=== PATIENT | male | born 1970 | race Two or more races ===

== ENCOUNTER → 2024-10-09 | Outpatient (CLI) | payer OTHER, MEDICAID, SELFPAY ==
[2024-10-09 08:41] LABS: Basophils % (Auto) 1 % (0-2.5); Eosinophils # (Auto) 0.1 Thou/mm3 (0.0-0.5); Eosinophils % (Auto) 2 % (0-10); Hematocrit 45.1 % (41.0-53.0); Hemoglobin 14.6 g/dL (13.5-16.0); Immature Granulocytes % (Auto) 0 % (0-0); Immature Granulocytes Auto 0.01 Thou/mm3 (0.00-0.00); Lymphocytes # (Auto) 0.8 Thou/mm3 (1.0-4.8); Lymphocytes % (Auto) 15 % (10-50); Mean Corpuscular HGB Conc 32.4 g/dl (31.0-37.0); Mean Corpuscular Hemoglobin 26.3 pg (25.0-35.0); Mean Corpuscular Volume 81 fL (80-100); Monocytes # (Auto) 0.5 Thou/mm3 (0.0-0.8); Monocytes % (Auto) 9 % (0-12); Neutrophils % (Auto) 74 % (37-80); Nucleated Red Blood Cell % 0 /100 WBC (0); Platelet Count 453 Thou/mm3 (140-440); RDW Standard Deviation 45.1 fL (35.1-43.9); Red Blood Count 5.55 Miln/mm3 (4.50-5.90); White Blood Count 5.4 Thou/mm3 (3.8-10.6)
== END | disposition home or self-care (01) ==
LOC: COPL 07:34
PROVIDERS: PCP Family Medicine; Referring Provider Family Medicine; Visit Provider Family Medicine
DX: I48.11 Longstanding persistent atrial fibrillation (principal)
CPT/HCPCS: 36415; 85025

== ENCOUNTER 2024-11-14 09:12 | Outpatient (AMB) | payer OTHER, MEDICAID, SELFPAY ==
--- NOTE | 2024-11-14 09:25 | RHCORTHONT_ITS ---
Vital signs 11/14/24 09:26 Height 1.75 m Height Method Stated Weight 114.816 kg Weight Measurement Method Standing Scale BMI 37.5 BP 133/87 H Blood Pressure Source Automatic Cuff Blood Pressure Location Right Upper Arm Position Sitting Respiration 18 Pulse 65 Pulse Source Monitor Temp 98.1 F Temp Source Temporal Artery Scan Pulse Oximetry (%) 96 Oxygen Delivery Method Room Air Med/Allergies Allergies & Medications Allergies No Known Allergies Allergy (Verified 11/14/24 09:27) Medication Reconciliation allopurinol 300 mg tablet 300 mg PO QDAY 07/17/21 [History Confirmed 09/02/24] rivaroxaban 20 mg tablet (Xarelto) 20 mg PO HS 07/17/21 [History Confirmed 09/02/24] atorvastatin 80 mg tablet 80 mg PO QPM #30 tabs 11/17/22 [Rx Confirmed 09/02/24] tirzepatide 15 mg/0.5 mL subcutaneous pen injector (Mounjaro) 15 mg subcut QWEEK 05/20/24 [History Confirmed 09/02/24] famotidine 40 mg tablet 40 mg PO HS 08/10/24 [History Confirmed 09/02/24] linaclotide 145 mcg capsule (Linzess) 145 mcg PO QDAY 08/10/24 [History Confirmed 09/02/24] loratadine 10 mg disintegrating tablet 10 mg PO QDAY 08/10/24 [History Confirmed 09/02/24] aspirin 81 mg tablet 81 mg PO QDAY 09/02/24 [History Confirmed 09/02/24] dapagliflozin propanediol 10 mg tablet (Farxiga) 10 mg PO DAILY 09/02/24 [History Confirmed 09/02/24] levothyroxine 88 mcg tablet 88 mcg PO QDAY 09/02/24 [History Confirmed 09/02/24] mexiletine 150 mg capsule 150 mg PO BID 09/02/24 [History Confirmed 09/02/24] sotalol 160 mg tablet 160 mg PO BID 09/02/24 [History Confirmed 09/02/24] lisinopril 2.5 mg tablet 2.5 mg PO QDAY #30 tabs 09/03/24 [Rx] metoprolol succinate 50 mg tablet,extended release 24 hr 50 mg PO QDAY #30 tabs 09/03/24 [Rx] metoprolol tartrate 50 mg tablet 50 mg PO QDAY 11/14/24 [History Confirmed 11/14/24] mexiletine 150 mg capsule 300 mg PO Q8H 11/14/24 [History Confirmed 11/14/24] Exam Exam Patient is in no acute distress and is cooperative with the examination today. Breathing is nonlabored. In no respiratory distress. Bilateral extremities were evaluated and demonstrates sensation intact to light touch. Palpable pedal pulses are present. No significant edema is present. Bilateral hips were examined. The patient has no pain with log roll of the hips. Internal rotation to 30 degrees and external rotation to 30 degrees is painless. Negative FADIR. The left knee was examined. The left knee is in varus alignment. Range of motion from 0-115 degrees. Knee is stable to varus and valgus as well as AP translation with <5mm. Patient has a negative McMurrays. There is no pain with patellofemoral compression and no crepitus noted. The knee is tender to palpation medially. The right knee was also examined. The right knee is in varus alignment. Range of motion from 0-120 degrees. Knee is stable to varus and valgus as well as AP translation with <5mm. Patient has a negative McMurrays. There is no pain with patellofemoral compression and no crepitus noted. The knee is tender to palpation medially. X-rays from [facility] dated March 2023 reviewed by me today. This demonstrates complete obliteration of medial joint space. These are nonweightbearing. There is varus deformity Assessment and Plan Problem List (1) Unilateral primary osteoarthritis, right knee: Status: Acute Plan: Patient is a 53-year-old male with bilateral knee osteoarthritis worse on the right. We discussed nonoperative and operative options. He is meeting attempts at weight loss. He would like bilateral knee injections today which do not last very long for him. We will try to get surgery set up for 3 months after the injection. He is failed conservative treatment options and I am not sure what else we can offer him besides total knee replacement at this point. Recommend knee cortisone injections as patient would like to proceed with conservative treatment at this time. The risks and benefits of the procedure were reviewed with the patient and patient gave verbal consent to continue with the procedure. Procedure: performed by Dr. Kumari Using sterile technique the Bilateral knees were thoroughly prepped with alcohol, and approximately 1 cc of Kenalog 40 mg/mL and 4 cc of 1% lidocaine was injected into each knee without resistance into the medial tibial femoral joint space. The patient tolerated the procedure. We will start with surgery on the right knee and this is hurting him more. We will wait 3 months from the injection to do surgery at the earliest (2) Diabetes: Status: Acute Office Procedures GNS Level of Care Nursing/Assessment Patient Status: Established Patient Nursing Assessment/Reassesment: Medication Reconciliation, Update PMH in EMR and Vital Signs Coordination of Care: Complex Care and Chronic Disease 1-5, Education Complex Pt/Fam, Consent,records obtained, informed consent, Results/Orders obtained and Staff clarify orders Established Patient Charge Established Patient Point Assignment: 95 Established Patient Point Charge: Level 3 (80-115) Surgical Proc/IM SQ injection Major Surgical Procedure: Yes (BILATERAL KNEE INJECTION) Medication Given Medication Given Medication Given: Yes Documented Dose Given: 4 Route: Infiitration Medication Given Medication Given Medication Given: Yes Documented Dose Given: 4 Route: Infiitration Medication Given Medication Given Medication Given: Yes Documented Dose Given: 1 Route: Infiitration Medication Given Medication Given Medication Given: Yes Documented Dose Given: 1 Route: Infiitration Office Meds Xylocaine 10 mg/mL (1 %) injection solution Performing Provider: Franklin Kumari MD Performing Location: [facility] Administered by: Franklin Kumari MD on 11/14/24 09:57 Dose Route Admin Location Dispensed Lot Number Expiration Date [facility] [employer] 40 mL Infiltration 40 mL [id number] 06/24/27 28717-524-84 [employer] Xylocaine 10 mg/mL (1 %) injection solution Performing Provider: Franklin Kumari MD Performing Location: [facility] Administered by: Franklin Kumari MD on 11/14/24 09:57 Dose Route Admin Location Dispensed Lot Number Expiration Date [facility] [employer] 40 mL Infiltration 40 mL [id number] 06/24/27 53165-128-85 [employer] KAB[employer] triamcinolone acetonide 40 mg/mL suspension for injection Performing Provider: Franklin Kumari MD Performing Location: [facility] Administered by: Franklin Kumari MD on 11/14/24 09:57 Dose Route Admin Location Dispensed Lot Number Expiration Date [facility] [employer] 80 mg intra-articular 2 mL [id number] 04/24/26 0286-5508-79 [employer] triamcinolone acetonide 40 mg/mL suspension for injection Performing Provider: Franklin Kumari MD Performing Location: [facility] Administered by: Franklin Kumari MD on 11/14/24 09:57 Dose Route Admin Location Dispensed Lot Number Expiration Date [facility] [employer] 80 mg intra-articular 2 mL [id number] 04/24/26 0698-3808-77 [employer]EV[employer] PARENTERAL MA Intake Visit Data Collection New Patient or Established: Established Patient (seen at [facility] within 3 years) Reason for Visit:: FOLLOW UP Seen by Clinical Staff ONLY (RN/MA): No Verbal consent obtained for Telemed visit?: No [employer] Required: No PCP or OBGYN visit in last 3 months: Yes Hx Now: No Do You Feel Safe at Home: Yes Authorities Contacted: N/A Questionairres Past Medical History Past Medical History Have you ever been diagnosed with any of the following: Neurological Problems Cerebrovascular Accident (CVA): Yes Seizures: No Cardiology Problems Myocardial Infarction: Yes Cardiac Arrhythmia: Yes Atrial Fibrillation: Yes Hypercholesterolemia: Yes Congestive Heart Failure: No Edema: No Cellulitis: No Hypertension: Yes Varicose Veins: No Respiratory Problems Chronic Obstructive Pulmonary Disease (COPD): No Asthma: No Pulmonary Fibrosis: No Tuberculosis: No Sleep Apnea: No Stomache/Intestinal Problems Hepatitis: No Gastroesophageal Reflux Disease: Yes Obesity: Yes Genital/Urinary Problems Renal Disease: No Musculoskeletal Problems Arthritis: Yes Gout: Yes Endocrine Problems Diabetes Mellitus Type 1: No Diabetes Mellitus Type 2: Yes Hypothyroidism: Yes Blood Problems Sickle Cell Disease: No Other Problems Hospitalization: Yes Shingles: No Falls: No Blood Transfusions: No Blood Transfusion Reaction: No Anesthesia Reactions: No Chemotherapy: No Radiation Therapy: No MRSA: No Chicken Pox: No Measles: No Mumps: No Cancer: No Surgical History Pacemaker: Yes Subjective Visit Visit for: follow up visit, knee and injections Immunization / Flu Flu Vaccine in the Last 12 Months: No Flu Vaccine Exclusion Criteria: No Exclusion Criteria History of Present Illness Chief complaint: F/U KNEE INJECTIONS Ar is a pleasant 54-year-old male with bilateral knee pain and bilateral knee arthritis. I been seeing him for quite a while. He does have severe heart issues that are ongoing right now. He has recent ablations and reports that it is currently well-controlled. He would like to get knee injections as he cannot get surgery at this time Pain Pain level (0-10): 8 Pain duration: WITH COLDER WEATHER Pain location: inside (medial), outside (lateral) and anterior Pain quality: sharp, dull and aching Pain timing: other (specify) Ambulatory data Ambulatory device: none Treatments Improvement with previous injections: No Improvement with PT: No Improvement with NSAIDS: n/a Review of Systems Review of Systems: All systems negative unless otherwise noted in HPI.
[2024-11-14 09:26] VITALS: BP 133/87; PULSE 65; RESP 18; TEMP 36.7; O2SAT 96; BMI 37.5
== END 2024-11-14 10:19 | disposition home or self-care (01) ==
PROVIDERS: PCP Family Medicine; Referring Provider Family Medicine; Supervising Provider Orthopaedic Surgery Adult Reconstructive Orthopaedic Surgery; Visit Provider Orthopaedic Surgery Adult Reconstructive Orthopaedic Surgery
DX: M17.0 Bilateral primary osteoarthritis of knee (principal); E11.9 Type 2 diabetes mellitus without complications; I10 Essential (primary) hypertension; E78.00 Pure hypercholesterolemia, unspecified; I48.91 Unspecified atrial fibrillation; I25.2 Old myocardial infarction; K21.9 Gastro-esophageal reflux disease without esophagitis; E03.9 Hypothyroidism, unspecified
CPT/HCPCS: 20610; 99213; J3301; J3490; G0463

== ENCOUNTER → 2024-12-11 | Outpatient (CLI) | payer OTHER, MEDICAID, SELFPAY ==
[2024-12-11 08:30] LABS: Basophils % (Auto) 0 % (0-2.5); Eosinophils # (Auto) 0.1 Thou/mm3 (0.0-0.5); Eosinophils % (Auto) 1 % (0-10); Hematocrit 47.5 % (41.0-53.0); Hemoglobin 15.9 g/dL (13.5-16.0); Immature Granulocytes % (Auto) 0 % (0-0); Immature Granulocytes Auto 0.02 Thou/mm3 (0.00-0.00); Lymphocytes # (Auto) 1.8 Thou/mm3 (1.0-4.8); Lymphocytes % (Auto) 24 % (10-50); Mean Corpuscular HGB Conc 33.5 g/dl (31.0-37.0); Mean Corpuscular Hemoglobin 26.6 pg (25.0-35.0); Mean Corpuscular Volume 80 fL (80-100); Monocytes # (Auto) 0.6 Thou/mm3 (0.0-0.8); Monocytes % (Auto) 8 % (0-12); Neutrophils # (Auto) 5.1 Thou/mm3 (1.8-7.7); Neutrophils % (Auto) 67 % (37-80); Nucleated Red Blood Cell % 0 /100 WBC (0); Platelet Count 315 Thou/mm3 (140-440); RDW Standard Deviation 45.9 fL (35.1-43.9); Red Blood Count 5.97 Miln/mm3 (4.50-5.90); White Blood Count 7.6 Thou/mm3 (3.8-10.6)
[2024-12-11 08:44] LABS: Glucose Estimated Average 117 mg/dL (80-131); Hemoglobin A1C 5.7 % Hgb (4.8-6.0)
[2024-12-11 08:48] LABS: Alanine Aminotransferase 15 U/L (10-49); Albumin, Serum 4.6 gm/dL (3.5-5.0); Albumin/Globulin Ratio 2.1 (1.2-2.2); Alkaline Phosphatase 136 U/L (46-116); Anion Gap 9 (7-16); Aspartate Amino Transferase 13 U/L (0-34); BUN/Creatinine Ratio 13 Ratio (12-20); Bilirubin,Total 0.6 mg/dL (0.3-1.2); Blood Urea Nitrogen 14 mg/dL (9-23); Calcium 9.9 mg/dL (8.3-10.6); Calcium (Corrected) 9.9 mg/dL (8.5-10.1); Cardiac Risk Estimate 2.9 RATIO (4.0-6.7); Chloride 104 mMol/L (98-107); Cholesterol 113 mg/dL (132-200); Creatinine (Component) 1.1 mg/dL (0.6-1.3); Globulin 2.2 gm/dL (2.3-3.5); Glucose 114 mg/dL (74-106); HDL Cholesterol 39 mg/dL (40-60); LDL Cholesterol,Calculated 53 mg/dL (0-130); Osmolality,Calculated 284 (275-295); Potassium 3.8 mMol/L (3.4-5.1); Sodium 142 mMol/L (136-145); Total Protein 6.8 gm/dL (5.7-8.2); Triglycerides 106 mg/dL (30-150); eGFR > 60 See Note
== END | disposition home or self-care (01) ==
LOC: COPL 07:27
PROVIDERS: PCP Family Medicine; Referring Provider Family Medicine; Visit Provider Family Medicine
DX: E11.65 Type 2 diabetes mellitus with hyperglycemia (principal)
CPT/HCPCS: 36415; 80053; 80061; 81001; 82043; 82570; 83036; 85025

== ENCOUNTER 2024-12-19 10:15 | Day surgery (SDC) | payer OTHER, MEDICAID, SELFPAY ==
[2024-12-19] VITALS (10 sets, daily range): BP systolic 106–138; BP diastolic 69–94; PULSE 60–67; RESP 11–20; TEMP 36.2–36.6; O2SAT 92–98; BMI 36.0
[2024-12-19] MEDS: Ampicillin Inj 2,000 MG in SODIUM CHLORIDE 0.9% (P) 100 ML 100 MG IV (11:25)
[2024-12-19] MEDS: GENTAMICIN INJ 40 MG/ML 20ML 80 MG IV (12:25)
[2024-12-19] MEDS: ONDANSETRON INJ 2 MG/ML INJ 2 ML 4 MG IV (12:45)
[2024-12-19] MEDS: SODIUM CHLORIDE 0.9% 500 ML 500 ML 20 ML IV (12:45)
[2024-12-19] MEDS: DiphenhydrAMINE INJ 50 MG/ML VIAL 25 MG IV (12:45)
[2024-12-19] MEDS: MEPERIDINE INJ 25 MG/ML VIAL (ASD USE ONLY) IV (12:46)
[2024-12-19] MEDS: MIDAZOLAM INJ 1 MG/ML VIAL 2 ML (ASD USE ONLY) 2 MG IV (12:46)
[2024-12-19] MEDS: fentaNYL CIT INJ 50 mCg/ML AMP 2ML (ASD USE ONLY) IV (12:46)
--- NOTE | 2024-12-19 14:52 | SUR.PHASEII ---
1300: Pt received in [facility] via gurney. Report from Melinda WYNN. Pt sleepy. Easily aroused then drifts back to sleep. Resp even, unlabored. VS stable. Denies pain. 1330: Pt more awake, alert. VS stable. Denies pain. Sitting up tolerating po fluids with no difficulty swallowing and no n/v. 1350: Pt fully awake, oriented x3. Pt was assisted to restroom. Ambulation steady. Pt and stated understanding of discharge instructions. Pt discharged from [facility] in stable condition.
== END 2024-12-19 13:50 | disposition home or self-care (01) ==
PROVIDERS: PCP Family Medicine; Referring Provider Specialist; Visit Provider Specialist
PROC: 0DBE8ZX Excision of Large Intestine, Via Natural or Artificial Opening Endoscopic, Diagnostic (ICD-10-PCS; CPT 45380; principal; 2024-12-19 11:45)
DX: D12.3 Benign neoplasm of transverse colon (principal); D12.8 Benign neoplasm of rectum; K64.9 Unspecified hemorrhoids; K57.30 Diverticulosis of large intestine without perforation or abscess without bleeding
CPT/HCPCS: 45385; J0290; J1200; J1580; J2175; J2250; J2405; J3010; J7040; J7050

== ENCOUNTER 2024-12-27 11:02 | Observation (INO) | payer OTHER, MEDICAID, SELFPAY ==
[2024-12-27 11:11] VITALS: BP 147/91; PULSE 67; RESP 18; TEMP 36.4; O2SAT 99; BMI 36.9
--- NOTE | 2024-12-27 12:00 | PC.NURSE ---
Haley, CONCRETE PANEL INSTALLER at bedside with pt. Pt a+ox4. Sustainability Executive Director distress.
--- NOTE | 2024-12-27 12:11 | PD.EDGIBLD ---
ED GI Bleed RME/HPI General Chief complaint: GI Bleed Stated complaint: POOPING BLOOD Time Seen by Provider: 12/27/24 11:40 Arrival date/time: 12/27/24 11:02 This is a 54-year-old male that comes into the emergency room with rectal bleeding. Patient reports that on 19 December he had a colonoscopy. Patient states and that it was a routine colonoscopy. Patient reports that he did not have any issues afterwards. Patient states the rectal bleeding started this morning. Patient states that he is pooping blood and blood clots. Patient has a history of diabetes, high blood pressure, gout, arthritis, CAD with 1 stent to his heart, patient has a history of irregular heartbeat but not able to tell me if it is a A-fib and is status post ablation and has a pacemaker defibrillator. Patient is on full dose aspirin and also Xarelto. Patient reports that before the procedure they did not hold any of these medications. Patient denies any abdominal pain, nausea, vomiting, diarrhea. Related Data Home Medications ?Medication ?Instructions ?Recorded ?Confirmed allopurinol 300 mg tablet 300 mg PO QDAY 07/17/21 12/27/24 rivaroxaban 20 mg tablet (Xarelto) 20 mg PO HS 07/17/21 12/27/24 tirzepatide 15 mg/0.5 mL 15 mg subcut QWEEK 05/20/24 12/27/24 subcutaneous pen injector (Mounjaro) linaclotide 145 mcg capsule 145 mcg PO QDAY 08/10/24 12/27/24 (Linzess) dapagliflozin propanediol 10 mg 10 mg PO DAILY 09/02/24 12/27/24 tablet (Farxiga) levothyroxine 88 mcg tablet 88 mcg PO QDAY 09/02/24 12/27/24 mexiletine 150 mg capsule 150 mg PO BID 09/02/24 12/27/24 sotalol 160 mg tablet 160 mg PO BID 09/02/24 12/27/24 metoprolol tartrate 50 mg tablet 50 mg PO QDAY 11/14/24 12/27/24 nifedipine 60 mg tablet,extended 60 mg PO QDAY 12/19/24 12/27/24 release 24 hr loratadine 10 mg tablet 10 mg PO DAILY 12/27/24 12/27/24 Previous Rx's ?Medication ?Instructions ?Recorded atorvastatin 80 mg tablet 80 mg PO QPM #30 tabs 11/17/22 lisinopril 2.5 mg tablet 2.5 mg PO QDAY #30 tabs 09/03/24 aspirin 81 mg tablet,delayed 81 mg PO QDAY 30 days #30 tabs 12/29/24 release (Ecotrin Low Strength) psyllium husk (aspartame) 3.4 gram 3.4 g PO TID #30 ea 12/29/24 oral powder packet (Metamucil Fiber Singles) Allergies Allergy/AdvReac Type Severity Reaction Status Date / Time No Known Allergies Allergy Verified 12/27/24 11:04 Review of Systems Review of Systems Systems Reviewed: All systems reviewed, normal except as documented Past Medical History Past Medical History Comments PMH COMMENT: Past medical history: ?Atrial fibrillation s/p ablation 08/11/2024 at [facility] by EP Dr. Ashford ? History of V. tach s/p ICD ? Essential hypertension ? Hypothyroidism ? Dvc-ideyeyi-xwmrgmetr diabetes mellitus type 2 ? Chronic systolic congestive heart failure with reduced ejection fraction [35-40%] ? CAD s/p stents LCx and LAD ?Osteoarthritis bilateral knees Medication list: Allopurinol 300 Mg p.o. daily Aspirin 81 Mg p.o. daily 50 Mg p.o. at bedtime Farxiga 10 Mg p.o. daily Famotidine 40 Mg p.o. daily Levothyroxine 88 mcg p.o. daily Linzess 145 Mg p.o. daily Lisinopril 2.5 Mg p.o. daily Loratadine 10 Mg p.o. daily Metoprolol XL 50 Mg p.o. daily Mexiletine 150 Mg p.o. twice daily Nifedipine XL 60 Mg p.o. daily Xarelto 20 Mg p.o. daily Sotalol 160 Mg p.o. twice daily Mounjaro 10 Mg SC weekly Magnesium 400 Mg p.o. daily Past surgical history: ?Cholecystectomy 2014 ? 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 He lives with his sister and mom and ambulates independently and carries out all ADLs. Patient attended 1 year of college before dropping out Patient has remote 5-pack-year smoking history but quit greater than 25 years ago. Patient has history of heavy alcohol use in his 20s including Bacardi, tequila and beers. Quit 30 years ago Patient endorses remote history of crank and speed in his 20s. Family History: Dad?MA in his 70s Brother?MA in his 50s Brother?MA in his 40s Brother?ESRD ED Exam General General appearance: Present alert and in no apparent distress Head Head exam: Present atraumatic Eye Eye exam: Present normal appearance, PERRL and EOMI ENT ENT exam: Present normal exam, normal oropharynx and mucous membranes moist Neck Neck exam: Present normal inspection, full ROM and trachea midline Chest Chest inspection: Present normal inspection and symmetric chest wall rise Respiratory Respiratory exam: Present normal lung sounds bilaterally Cardiovascular Cardiovascular exam: Present regular rate, normal rhythm and normal heart sounds Abdominal Exam Abdominal exam: Present soft Rectal Exam Rectal exam: Present heme (+) stool Extremities Exam Extremities exam: Present normal inspection and full ROM Back Exam Back exam: Present normal inspection and full ROM Neurological Exam Neurological exam: Present alert, oriented X3 and CN II-XII intact Psychiatric Psychiatric exam: Present normal affect and normal mood Skin Skin exam: Present warm, dry, intact and normal color Course Quality Measures none Orders Category Date Time Status Patient Condition Routine Admission 12/27/24 15:[address] in Observation Status Routine Admission 12/27/24 15:30 Active COVID-19 Screening Questionnaire NOW Care 12/27/24 14:12 Completed Decision to Admit X1 Care 12/27/24 14:12 Completed NPO NOW Care 12/27/24 15:31 Completed Notify provider NEEDED Care 12/27/24 15:29 Completed Seizure precautions NEEDED Care 12/27/24 15:31 Completed Consult to General Surgery Stat Cons 12/27/24 14:12 Ordered Diet NPO (NOW) Diet 12/27/24 15:31 Completed KUB [XR abdomen 1V] Stat Exams 12/27/24 14:10 Completed CBC AM DRAW Lab 12/28/24 04:30 Completed CBC AM DRAW Lab 12/29/24 03:58 Completed CBC Stat Lab 12/27/24 12:38 Completed CBC Stat Lab 12/27/24 14:53 Completed CMP [Comprehensive Metabolic Panel] Stat Lab 12/27/24 12:38 Completed Partial Thromboplastin Time Stat Lab 12/27/24 12:38 Completed Prothrombin Time with INR Stat Lab 12/27/24 12:38 Completed Acetaminophen Tab [Tylenol Tab] Med 12/27/24 15:29 Discontinued 650 mg PO Q6H PRN HYDROcodone*/APAP 5/325 [[place] 5/325] Med 12/27/24 15:29 Discontinued 1 tab PO Q4HR PRN Mexiletine HCl [Mexitil] Med 12/27/24 16:30 Discontinued 150 mg PO Q12HR Ondansetron Inj [Zofran Inj] Med 12/27/24 15:29 Discontinued 4 mg IV Q6H PRN Pantoprazole Inj [Protonix Inj] Med 12/27/24 15:45 Discontinued 40 mg IVP QDAY Ringers Lactated 1000 ml [Lactated Ringers] 1,000 ml Med 12/27/24 15:34 Discontinued IV 100 mls/hr Sotalol HCl [Betapace] Med 12/27/24 15:30 Discontinued 160 mg PO Q12H Code Status Routine Oth 12/27/24 15:29 Completed Oxygen Delivery PRN RT 12/27/24 15:29 Completed Vital Signs Vital signs: Vital Signs Temperature 97.5 F 12/27/24 11:11 Pulse Rate 67 12/27/24 11:11 Respiratory Rate 18 12/27/24 11:11 Blood Pressure 147/91 H 12/27/24 11:11 Pulse Oximetry (%) 99 12/27/24 11:11 Oxygen Delivery Method Room Air 12/27/24 11:11 GI Bleed MDM Narrative MDM Narrative:: Report of teen by Dr. Broderick who did the colonoscopy. Hemorrhoids found on perianal exam. Moderate diverticulosis in sigmoid colon and in descending colon. There was no evidence of diverticular bleeding. 1 large 1 cm or greater polyp in transverse colon, removed with hot snare resected and retrieved. 1 polyp in rectum removed with hot snare resected and retrieved. Dr. Broderick recommends clear liquid diet and possible tagged RBC scan. Hospitalist called for admission. Dr. Broderick at bedside talking to patient. Patient data External records reviewed:: [facility] previous records Clinical information provided by:: patient Social determinants that could affect healthcare access:: none Patient has the following chronic illnesses:: see note How is presenting disease/condition affected by chronic disease/condition?: exacerbated by Evaluation data The following diagnostics were reviewed and interpreted by me:: lab results and radiology exam(s) Lab and/or radiology exams considered but not ordered:: none Interpretation Summary: see note Medications / Prescriptions Medications or Prescriptions considered but not ordered:: none Medication administrations:: Medication Administration History Discontinued Medications Acetaminophen (Acetaminophen 325 Mg Tablet) 650 mg PO Q6H PRN PRN Reason: Fever >100.3 Stop: 01/26/25 15:28 Hydrocodone Bitart/Acetaminophen (Hydrocodone/Apap 5/325 Tablet) 1 tab PO Q4HR PRN PRN Reason: PAIN SCALE 4-10(Mod-Sev Stop: 01/01/25 15:28 Ampicillin Sodium (Ampicillin Inj 1000 Mg Vial) Confirm Administered Dose 2,000 mg .ROUTE .STK-MED ONE Stop: 12/28/24 16:33 Aspirin (Aspirin Ec 81 Mg Tabec) 81 mg PO QDAY [facility] Stop: 01/27/25 08:59 Last Admin: 12/29/24 09:10 Dose: 81 mg Documented By: Admin: 12/28/24 09:01 Dose: 81 mg Documented By: ALAINA Atorvastatin Calcium (Atorvastatin Calcium 20 Mg Tablet) 80 mg PO [facility] Stop: 01/26/25 20:59 Last Admin: 12/28/24 21:02 Dose: 80 mg Documented By: Admin: 12/27/24 21:36 Dose: 80 mg Documented By: BRIDGETTE Mexiletine 150 Mg (Capsule) 0 ea PO BID@0900,1630 [facility] Stop: 01/26/25 17:14 Last Admin: 12/28/24 06:37 Dose: 1 capsule Documented By: BRIDGETTE Comments: md de guzman Admin: 12/27/24 17:25 Dose: 1 capsule Documented By: MARION Mexiletine 150 Mg (Capsule) 0 ea PO BID@0630,1630 [facility] Stop: 01/27/25 16:29 Last Admin: 12/29/24 06:06 Dose: 1 capsule Documented By: Admin: 12/28/24 16:50 Dose: 1 capsule Documented By: ALAINA Dextrose (Dextrose 50%-Water Inj 50 Ml Syringe) 50 ml IV Q15MIN PRN PRN Reason: BG <50 OR BG <70 & pt unresponsive Stop: 01/26/25 15:35 Diphenhydramine HCl (Diphenhydramine Inj 50 Mg/Ml Vial) 25 mg IV PRNMRX1 PRN PRN Reason: MODERATE SEDATION Stop: 12/28/24 18:23 Diphenhydramine HCl (Diphenhydramine Inj 50 Mg/Ml Vial) Confirm Administered Dose 50 mg .ROUTE .STK-MED ONE Stop: 12/28/24 16:34 Fentanyl Citrate (Fentanyl Cit Inj 50 Mcg/Ml Amp 2ml) 50 mcg IV Q2M PRN PRN Reason: MODERATE SEDATION Stop: 12/28/24 18:23 Fentanyl Citrate (Fentanyl Cit Inj 50 Mcg/Ml Amp 2ml) Confirm Administered Dose 100 mcg .ROUTE .STK-MED ONE Stop: 12/28/24 16:33 Glucagon (Glucagon Inj 1 Mg Vial) 1 mg IM Q15MIN PRN PRN Reason: BG <70, and no IV access Lactated Ringer's (Lactated Ringers) 1,000 mls @ 100 mls/hr IV .Q10H ONE Stop: 12/28/24 01:33 Last Admin: 12/27/24 16:58 Dose: 100 mls/hr Documented By: AM Potassium Chloride (Kcl Ivpb) 10 meq in 100 mls @ 100 mls/hr IV Q1H JOVANY Stop: 12/28/24 11:37 Last Admin: 12/28/24 10:02 Dose: Not Given Documented By: CV Non-Admin Reason: Discontinued Admin: 12/28/24 09:44 Dose: 50 mls/hr Documented By: Infusion: 12/28/24 08:58 Dose: Infused Documented By: Admin: 12/28/24 07:58 Dose: 100 mls/hr Documented By: CV Sodium Chloride (Ns) 100 mls @ 100 mls/hr IV X1 ONE Stop: 12/28/24 17:23 Gentamicin Sulfate/Sodium Chloride (Gentamicin/Ns 80 Mg Ivpb) Confirm Administered Dose 80 mg in 50 mls @ ud IV .STK-MED ONE Stop: 12/28/24 16:34 Ampicillin Sodium 2,000 mg/ (Sodium Chloride) 100 mls @ 200 mls/hr IV X1 ONE Stop: 12/28/24 17:14 Gentamicin Sulfate/Sodium Chloride 80 mg/ IV Miscellaneous Supplies 50 mls @ 50 mls/hr IV X1 ONE Stop: 12/28/24 18:14 Insulin Human Lispro (Insulin Lispro (Admelog) 1 Unit/0.01 Ml Unit) 0 unit SC [facility]; Protocol Stop: 01/26/25 16:59 Last Admin: 12/29/24 11:25 Dose: Not Given Documented By: SONY Non-Admin Reason: Per Protocol Admin: 12/29/24 07:34 Dose: Not Given Documented By: ALAINA Non-Admin Reason: Per Protocol Admin: 12/28/24 21:05 Dose: Not Given Documented By: CHARLES Non-Admin Reason: Per Protocol Comments: BG 119 Admin: 12/28/24 18:08 Dose: Not Given Documented By: CV Non-Admin Reason: Not In Room Admin: 12/28/24 11:51 Dose: Not Given Documented By: CV Non-Admin Reason: Per Protocol Admin: 12/28/24 07:29 Dose: Not Given Documented By: ALAINA Non-Admin Reason: Per Protocol Admin: 12/27/24 21:40 Dose: Not Given Documented By: BRIDGETTE Non-Admin Reason: Per Protocol Admin: 12/27/24 17:29 Dose: Not Given Documented By: AM Non-Admin Reason: NPO Levothyroxine Sodium (Levothyroxine Sodium 88 Mcg Tablet) 88 mcg PO ACBR [facility] Stop: 01/27/25 05:59 Last Admin: 12/29/24 06:06 Dose: 88 mcg Documented By: Admin: 12/28/24 06:35 Dose: 88 mcg Documented By: BRIDGETTE Lidocaine HCl (Lidocaine Jelly 2% (Urojet) 10 Ml Tube) Confirm Administered Dose 10 ml TOP .STK-MED ONE Stop: 12/28/24 17:06 Lidocaine HCl (Lidocaine Jelly 2% (Urojet) 10 Ml Tube) 0 ml TOP X1 ONE Stop: 12/28/24 17:14 Lisinopril (Lisinopril 2.5 Mg Tablet) 2.5 mg PO QDAY [facility] Stop: 01/28/25 10:14 Last Admin: 12/29/24 10:48 Dose: 2.5 mg Documented By: ALAINA Loratadine (Loratadine 10 Mg Tablet) 10 mg PO QDAY [facility] Stop: 01/27/25 08:59 Last Admin: 12/29/24 09:10 Dose: 10 mg Documented By: Admin: 12/28/24 09:01 Dose: 10 mg Documented By: ALAINA Meperidine HCl (Meperidine Inj 50 Mg/Ml Vial) 25 mg IV Q2M PRN PRN Reason: MODERATE SEDATION Stop: 12/28/24 18:23 Meperidine HCl (Meperidine Inj 50 Mg/Ml Vial) Confirm Administered Dose 50 mg [facility]TE [facility] Stop: 12/28/24 16:33 Metoprolol Succinate (Metoprolol Succinate Xl 25 Mg Tabcr) 50 mg PO QDAY [facility] Stop: 01/27/25 08:59 Last Admin: 12/28/24 09:01 Dose: 50 mg Documented By: ALAINA Metoprolol Succinate (Metoprolol Succinate Xl 25 Mg Tabcr) 50 mg PO QDAY@0630 [facility] Stop: 01/28/25 06:29 Last Admin: 12/29/24 06:05 Dose: 50 mg Documented By: CHARLES Mexiletine HCl (Mexiletine Hcl 150 Mg Capsule) 150 mg PO Q12HR [facility] Stop: 01/26/25 16:29 Last Admin: 12/27/24 17:27 Dose: Not Given Documented By: AM Non-Admin Reason: Discontinued Mexiletine HCl (Mexiletine Hcl 150 Mg Capsule) 150 mg PO BID [facility] Stop: 01/27/25 11:29 Midazolam HCl (Midazolam Inj 1 Mg/Ml Vial 2 Ml) 2 mg IV Q2M PRN PRN Reason: Moderate Sedation Stop: 12/28/24 18:23 Midazolam HCl (Midazolam Inj 1 Mg/Ml Vial 2 Ml) Confirm Administered Dose 6 mg .ROUTE .[facility] Stop: 12/28/24 16:33 Nifedipine (Nifedipine Xl 30 Mg Tabcr) 60 mg PO QDAY [facility] Stop: 01/27/25 08:59 Nifedipine (Nifedipine Xl 30 Mg Tabcr) 60 mg PO QDAY [facility] Stop: 01/29/25 08:59 Ondansetron HCl (Ondansetron Inj 2 Mg/Ml Inj 2 Ml) 4 mg IV Q6H PRN; Protocol PRN Reason: NAUSEA OR VOMITING Stop: 01/26/25 15:28 Pantoprazole Sodium (Pantoprazole Inj 40 Mg Vial) 40 mg IVP QDAY [facility] Stop: 01/26/25 15:44 Last Admin: 12/29/24 09:10 Dose: 40 mg Documented By: Admin: 12/28/24 09:00 Dose: 40 mg Documented By: Admin: 12/27/24 16:55 Dose: 40 mg Documented By: AM Polyethylene Glycol/Electrolytes ([place]/Nahco3/Feliberto/Peg (Golytely) 4,000 Ml Btl) 4,000 ml PO X1 ONE Stop: 12/27/24 16:16 Last Admin: 12/27/24 17:25 Dose: 4,000 ml Documented By: AM Potassium Chloride (Potassium Chloride 20 Meq Tabcr) 20 meq PO X1 ONE Stop: 12/28/24 07:39 Last Admin: 12/28/24 07:58 Dose: 20 meq Documented By: ALAINA Potassium Chloride (Potassium Chloride 10% 20 Meq/15 Ml Udc) 40 meq PO X1 ONE Stop: 12/28/24 09:53 Last Admin: 12/28/24 10:46 Dose: 40 meq Documented By: SONY(2) Potassium Chloride (Potassium Chloride 20 Meq Tabcr) 40 meq PO X1 ONE Stop: 12/29/24 08:03 Last Admin: 12/29/24 09:09 Dose: 40 meq Documented By: SONY Potassium Chloride (Potassium Chloride 20 Meq Tabcr) 20 meq PO X1 ONE Stop: 12/29/24 08:04 Last Admin: 12/29/24 09:09 Dose: 20 meq Documented By: SONY Sotalol HCl (Sotalol Hcl 80 Mg Tablet) 160 mg PO Q12H [facility] Stop: 01/26/25 15:29 Last Admin: 12/27/24 16:53 Dose: 160 mg Documented By: AM Sotalol HCl (Sotalol Hcl 80 Mg Tablet) 160 mg PO BID@0900,1630 [facility] Stop: 01/27/25 08:59 Last Admin: 12/28/24 06:35 Dose: 160 mg Documented By: KA Sotalol HCl (Sotalol Hcl 80 Mg Tablet) 160 mg PO BID@0630,1630 [facility] Stop: 01/27/25 16:29 Last Admin: 12/29/24 06:06 Dose: 160 mg Documented By: Admin: 12/28/24 16:49 Dose: 160 mg Documented By: ALAINA see mar Consultations Consultation(s) initiated? (list below): Yes Diagnosis GI bleed differential diagnosis: hemorrhoids, infectious diarrhea, esophageal varices and Lower gastrointestinal hemorrhage Most likely diagnosis given after review of the tests above:: gi bleed Admission Indicated Admission indicated?: indicated Admission Request Was there a request for admission?: Yes Admission Attestation Admission request attestation: Discussed case with Hospitalist service regarding admission. Discussed patients ED course, exam findings, labs, and radiology results. The Hospitalist [agrees to accept the patient for admission. Disposition Plan Disposition Plan: Admit Discharge Plan Plan Patient Disposition: Other Care w/in Hosp ([facility]) Disposition Comment: [place] Patient condition on transfer: Stable Problem List Clinical Impression: Acute GI bleeding, H/O heart artery stent, CAD (coronary artery disease) Patient/Caregiver Discharge Instructions Other Activity Instructions:: Follow-up with your primary care provider within 1-2 weeks after discharge. Recommend to follow-up with insurance account representative Dr. Broderick's instructions to start Xarelto on December 30 as prescribed. Recommend to follow-up with flake cutter operator Dr. Anant Blount within 1 week of discharge from hospital. Please follow-up with insurance account representative Dr. Broderick within 2 weeks of discharge from hospital. In case of worsening symptoms, please return to the emergency room. PA/LIVESTOCK SALES REPRESENTATIVE Supervising Physician PA/LIVESTOCK SALES REPRESENTATIVE Supervising Physician: marcia
--- NOTE | 2024-12-27 12:24 | PC.NURSE ---
last ate and drank approx 0730 this morning and had bhutanese toast and approx 500 ml of water.
[2024-12-27 12:44] LABS: Basophils % (Auto) 1 % (0-2.5); Eosinophils # (Auto) 0.1 Thou/mm3 (0.0-0.5); Eosinophils % (Auto) 2 % (0-10); Hematocrit 44.5 % (41.0-53.0); Hemoglobin 15.1 g/dL (13.5-16.0); Immature Granulocytes % (Auto) 0 % (0-0); Immature Granulocytes Auto 0.01 Thou/mm3 (0.00-0.00); Lymphocytes # (Auto) 1.3 Thou/mm3 (1.0-4.8); Lymphocytes % (Auto) 23 % (10-50); Mean Corpuscular HGB Conc 33.9 g/dl (31.0-37.0); Mean Corpuscular Hemoglobin 26.7 pg (25.0-35.0); Mean Corpuscular Volume 79 fL (80-100); Monocytes # (Auto) 0.5 Thou/mm3 (0.0-0.8); Monocytes % (Auto) 8 % (0-12); Neutrophils % (Auto) 67 % (37-80); Nucleated Red Blood Cell % 0 /100 WBC (0); Platelet Count 324 Thou/mm3 (140-440); RDW Standard Deviation 43.5 fL (35.1-43.9); Red Blood Count 5.66 Miln/mm3 (4.50-5.90); White Blood Count 5.9 Thou/mm3 (3.8-10.6)
[2024-12-27 13:05] LABS: INR 1.1 (0.9-1.3); Partial Thromboplastin Time 30.2 Seconds (22.0-36.0); Prothrombin Time 12.3 Seconds (9.0-12.2)
[2024-12-27 13:09] LABS: Alanine Aminotransferase 12 U/L (10-49); Albumin, Serum 4.2 gm/dL (3.5-5.0); Albumin/Globulin Ratio 1.7 (1.2-2.2); Alkaline Phosphatase 116 U/L (46-116); Anion Gap 8 (7-16); Aspartate Amino Transferase 18 U/L (0-34); BUN/Creatinine Ratio 17 Ratio (12-20); Bilirubin,Total 0.5 mg/dL (0.3-1.2); Blood Urea Nitrogen 19 mg/dL (9-23); Calcium 9.1 mg/dL (8.3-10.6); Calcium (Corrected) 9.1 mg/dL (8.5-10.1); Carbon Dioxide 23.7 mMol/L (20.0-31.0); Chloride 109 mMol/L (98-107); Creatinine (Component) 1.1 mg/dL (0.6-1.3); Estimated Creatinine Clearance 94.2 mL/min (>60); Globulin 2.5 gm/dL (2.3-3.5); Glucose 118 mg/dL (74-106); Osmolality,Calculated 284 (275-295); Potassium 3.9 mMol/L (3.4-5.1); Sodium 141 mMol/L (136-145); Total Protein 6.7 gm/dL (5.7-8.2); eGFR > 60 See Note
[2024-12-27 14:07] VITALS: PULSE 68; RESP 22
--- NOTE | 2024-12-27 14:10 | XR_ITS ---
Examination: Abdomen AP single view Technique: AP portable supine abdomen, single view Exam date and time: December 27, 2024 1413 hrs. Indications: Colonoscopy this week, followed by rectal bleeding Findings: Nonobstructive bowel gas pattern Surgical clips upper right abdomen No free air Impression: No free air identified
[2024-12-27 15:10] LABS: Basophils # (Auto) 0.1 Thou/mm3 (0.0-0.2); Basophils % (Auto) 1 % (0-2.5); Eosinophils # (Auto) 0.1 Thou/mm3 (0.0-0.5); Eosinophils % (Auto) 2 % (0-10); Hematocrit 43.7 % (41.0-53.0); Hemoglobin 14.6 g/dL (13.5-16.0); Immature Granulocytes % (Auto) 0 % (0-0); Immature Granulocytes Auto 0.02 Thou/mm3 (0.00-0.00); Lymphocytes # (Auto) 1.8 Thou/mm3 (1.0-4.8); Lymphocytes % (Auto) 24 % (10-50); Mean Corpuscular HGB Conc 33.4 g/dl (31.0-37.0); Mean Corpuscular Hemoglobin 26.7 pg (25.0-35.0); Mean Corpuscular Volume 80 fL (80-100); Monocytes # (Auto) 0.6 Thou/mm3 (0.0-0.8); Monocytes % (Auto) 7 % (0-12); Neutrophils # (Auto) 5.1 Thou/mm3 (1.8-7.7); Neutrophils % (Auto) 67 % (37-80); Nucleated Red Blood Cell % 0 /100 WBC (0); Platelet Count 363 Thou/mm3 (140-440); RDW Standard Deviation 44.7 fL (35.1-43.9); Red Blood Count 5.47 Miln/mm3 (4.50-5.90); White Blood Count 7.7 Thou/mm3 (3.8-10.6)
--- NOTE | 2024-12-27 15:40 | ESHP_ITS ---
Documentation for date of: 12/27/24 HPI History of Present Illness Chief complaint: CO Bleed History of present illness: HPI: Patient is a 54-year-old male with past medical history significant for essential hypertension, hypothyroidism, ayt-drympje-fdadedcls diabetes mellitus type 2, chronic systolic congestive heart failure with reduced ejection fraction [35-40%] history of V. tach s/p ICD placement, atrial fibrillation s/p ablation 08/11/2024 at [facility] by EP Dr. Ashford on anticoagulation with Xarelto and rate control with mexiletine 150 Mg p.o. twice daily and sotalol 160 Mg p.o. twice daily presented with a chief complaint of CO bleed. Patient stated that 1 week ago he had a colonoscopy done and had no complaints afterwards. Earlier today patient had a bowel movement and saw zelda red blood in the toilet. Subsequently he had 3 more bowel movements during the day all which had zelda red blood in the toilet as well as with wiping. Denies any melena, vomiting, hematemesis, coffee-ground emesis, bile emesis, diarrhea, fever, SOB, chest pain and dizziness. Of note patient had sustained V. tach last year after multiple ablations and his metoprolol XL dose was increased to 50 Mg daily from 25 Mg daily. He had his ablations done by EP Dr. Ashford at [facility] and currently follows up with wire mesh knitter, Dr. Ny. Zipper Ironer, Dr. Broderick recommended for CTA abdomen need to start patient on GoLytely bowel prep for colonoscopy tomorrow. ED course: BP 147/91, pulse 68, RR 22, temp 97.5, SpO2 99% on room air. Labs significant for Hb 15.1, HCT 44.5, BUN 19, CR 1.1, PT 12.3. EKG significant for sinus rhythm, occasional PVCs and Q waves in anteroseptal leads. No acute ST changes. Patient will be admitted for workup and management of likely lower GI bleed. Zipper Ironer, Dr. Broderick consulted and closely following the case. Appreciate recommendations washcoat wiper, Dr. Ny curcoco sided and agreed with GI recommendations to hold Xarelto for now and only keep aspirin. Review of Systems Review of Systems Narrative Review of Systems: GENERAL: Denies fever/chills or diaphoresis. HEENT: Denies headaches or visual changes. Denies discharge. Neuro: Denies unusual weakness or difficulty speaking. CARDIO: Denies chest pain, has intermittent palpitations at baseline PULM: Denies SOB, coughing or wheezing. GI: As above URO: Denies burning/itching/pain/urinary changes. MSK/EXT/SKIN: Denies joint/skeletal/muscle pain, issues/changes in upper or lower extremities, itchiness, or superficial pain. PSYCH: Cooperative, pleasant mood & affect. The rest of the review of systems is otherwise negative. Past Medical History Past Medical History Comments PMH COMMENT: Past medical history: ?Atrial fibrillation s/p ablation 08/11/2024 at [facility] by EP Dr. Ashford ? History of V. tach s/p ICD ? Essential hypertension ? Hypothyroidism ? Atn-evihlwo-rlvapivio diabetes mellitus type 2 ? Chronic systolic congestive heart failure with reduced ejection fraction [35- 40%] ? CAD s/p stents LCx and LAD ?Osteoarthritis bilateral knees Medication list: Allopurinol 300 Mg p.o. daily Aspirin 81 Mg p.o. daily 50 Mg p.o. at bedtime Farxiga 10 Mg p.o. daily Famotidine 40 Mg p.o. daily Levothyroxine 88 mcg p.o. daily Linzess 145 Mg p.o. daily Lisinopril 2.5 Mg p.o. daily Loratadine 10 Mg p.o. daily Metoprolol XL 50 Mg p.o. daily Mexiletine 150 Mg p.o. twice daily Nifedipine XL 60 Mg p.o. daily Xarelto 20 Mg p.o. daily Sotalol 160 Mg p.o. twice daily Mounjaro 10 Mg SC weekly Magnesium 400 Mg p.o. daily Past surgical history: ?Cholecystectomy 2014 ? 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 He lives with his sister and mom and ambulates independently and carries out all ADLs. Patient attended 1 year of college before dropping out Patient has remote 5-pack-year smoking history but quit greater than 25 years ago. Patient has history of heavy alcohol use in his 20s including Bacardi, tequila and beers. Quit 30 years ago Patient endorses remote history of crank and speed in his 20s. Family History: Dad?DE in his 70s Brother?DE in his 50s Brother?DE in his 40s Brother?ESRD Exam Vital Signs Temp Pulse Resp BP Pulse Ox O2 Del Method 97.5 F 68 22 H 147/91 H 99 Room Air 12/27/24 11:11 12/27/24 14:07 12/27/24 14:07 12/27/24 11:11 12/27/24 11:11 12/27/24 11:11 Narrative Exam Constitutional Alert, oriented x 3 and comfortable. Middle-age man HEENT Vision grossly intact. Patent nares. Trachea midline Respiratory Chest normal on inspection and clear auscultation bilaterally Cardiovascular S1 and S2 audible, RRR. No murmurs carotid bruit. No gross JVD. Abdominal Soft and non tender to palpation in all quadrants. BS + Genitourinary No bladder tenderness, no flank pain. Normal to palpation Musculoskeletal Extremities tone within normal limits. No LE edema. Neurological CN II - XII grossly intact. Extremity motor and sensation grossly intact. Skin Warm, dry and intact. No apparent lesions. Psychiatric Patient has good affect, is cooperative Results: Labs 12/27/24 14:53 12/27/24 12:38 Labs: Short CBC 12/27/24 12/27/24 Range/Units 12:38 14:53 WBC 5.9 7.7 (3.8-10.6) Thou/mm3 Hgb 15.1 14.6 (13.5-16.0) g/dL Hct 44.5 43.7 (41.0-53.0) % Plt Count 324 363 D (140-440) Thou/mm3 BMP 12/27/24 12:38 Sodium 141 Potassium 3.9 Chloride 109 H Carbon Dioxide 23.7 BUN 19 Creatinine 1.1 Glucose 118 H Calcium 9.1 Liver Function 12/27/24 Range/Units 12:38 Total Bilirubin 0.5 (0.3-1.2) mg/dL AST 18 (0-34) U/L ALT 12 (10-49) U/L Alkaline Phosphatase 116 (46-116) U/L Albumin 4.2 (3.5-5.0) gm/dL Quality Measures Quality Measures VTE prophylaxis (SCDs) Medications Home Medications and Allergies Home Medications ?Medication ?Instructions ?Recorded ?Confirmed ?Type allopurinol 300 mg tablet 300 mg PO QDAY 08/22/21 01/2 4/25 History rivaroxaban 20 mg tablet (Xarelto) 20 mg PO HS 1 12/19/24 History tirzepatide 15 mg/0.5 mL 15 mg subcut QWEEK 05/20/24 12/19/24 History subcutaneous pen injector (Mounjaro) famotidine 40 mg tablet 40 mg PO HS 08/10/24 5 History linaclotide 145 mcg capsule 145 mcg PO QDAY 08/10/24 0 12/19/24 History (Linzess) loratadine 10 mg disintegrating 10 mg PO QDAY 08/10/24 12/19/24 History tablet Held on 12/19/24. Instructions: Resume on 12/20/24. aspirin 81 mg tablet 81 mg PO QDAY 09/02/2412/19 History dapagliflozin propanediol 10 mg 10 mg PO DAILY 4 12/19/24 History tablet (Farxiga) levothyroxine 88 mcg tablet 88 mcg PO QDAY 09/02/24 History mexiletine 150 mg capsule 150 mg PO BID 09/02/2412/19 History sotalol 160 mg tablet 160 mg PO BID 09/02/2412/19 History metoprolol tartrate 50 mg tablet 50 mg PO QDAY 4 12/19/24 History mexiletine 150 mg capsule 300 mg PO Q8H 11/14/2412/19 History nifedipine 60 mg tablet,extended 60 mg PO QDAY 5 12/19/24 History release 24 hr tirzepatide 15 mg/0.5 mL 10 mg subcut QWEEK 12/19/24 12/19/24 History subcutaneous pen injector (Mounjaro) Allergies Allergy/AdvReac Type Severity Reaction Status Date / Time No Known Allergies Allergy Verified 12/27/24 11:04 Visit Medications Acetaminophen (Acetaminophen 325 Mg Tablet) 650 mg PO Q6H PRN PRN Reason: Fever >100.3 Stop: 01/26/25 15:28 Hydrocodone Bitart/Acetaminophen (Hydrocodone/Apap 5/325 Tablet) 1 tab PO Q4HR PRN PRN Reason: PAIN SCALE 4-10(Mod-Sev Stop: 01/01/25 15:28 Aspirin (Aspirin Ec 81 Mg Tabec) 81 mg PO QDAY [facility] Stop: 01/27/25 08:59 Atorvastatin Calcium (Atorvastatin Calcium 20 Mg Tablet) 80 mg PO HS [facility] Stop: 01/26/25 20:59 Dextrose (Dextrose 50%-Water Inj 50 Ml Syringe) 50 ml IV Q15MIN PRN PRN Reason: BG <50 OR BG <70 & pt unresponsive Stop: 01/26/25 15:35 Glucagon (Glucagon Inj 1 Mg Vial) 1 mg IM Q15MIN PRN PRN Reason: BG <70, and no IV access Lactated Ringer's (Lactated Ringers) 1,000 mls @ 100 mls/hr IV .Q10H ONE Stop: 12/28/24 01:33 Insulin Human Lispro (Insulin Lispro (Admelog) 1 Unit/0.01 Ml Unit) [address] [facility]; Protocol Stop: 01/26/25 16:59 Levothyroxine Sodium (Levothyroxine Sodium 88 Mcg Tablet) 88 mcg PO ACBR [facility] Stop: 01/27/25 05:59 Loratadine (Loratadine 10 Mg Tablet) 10 mg PO QDAY [facility] Stop: 01/27/25 08:59 Metoprolol Succinate (Metoprolol Succinate Xl 25 Mg Tabcr) 50 mg PO QDAY [facility] Stop: 01/27/25 08:59 Mexiletine HCl (Mexiletine Hcl 150 Mg Capsule) 150 mg PO Q12HR [facility]ANY Stop: 01/26/25 16:29 Nifedipine (Nifedipine Xl 30 Mg Tabcr) 60 mg PO QDAY [facility] Stop: 01/27/25 08:59 Ondansetron HCl (Ondansetron Inj 2 Mg/Ml Inj 2 Ml) 4 mg IV Q6H PRN; Protocol PRN Reason: NAUSEA OR VOMITING Stop: 01/26/25 15:28 Pantoprazole Sodium (Pantoprazole Inj 40 Mg Vial) 40 mg IVP QDAY [facility] Stop: 01/26/25 15:44 Sotalol HCl (Sotalol Hcl 80 Mg Tablet) 160 mg PO Q12H JOVANY Stop: 01/26/25 15:29 Assessment & Plan Plan Patient is a 54-year-old male with past medical history significant for essential hypertension, hypothyroidism, rjl-pbdwtwf-vxndmbnhu diabetes mellitus type 2, chronic systolic congestive heart failure with reduced ejection fraction [35-40%] history of V. tach s/p ICD placement, atrial fibrillation s/p ablation 08/11/2024 at [facility] by EP Dr. Ashford on anticoagulation with Xarelto and rate control with mexiletine 150 Mg p.o. twice daily and sotalol 160 Mg p.o. twice daily presented with a chief complaint of CO bleed. Patient will be admitted for workup and management of likely lower GI bleed. 1. GI bleed for investigation, likely lower Patient presented with 3 episodes of zelda CO bleed Guaiac positive Of note patient had colonoscopy done 12/19/2024 findings include: Hemorrhoids on perianal exam. Sigmoid diverticulosis. Large 1 cm or greater polyp in the transverse colon Resected with hot snare and hemostasis achieved. Small polyp in the rectum removed with hot snare and hemostasis achieved. Plan: ? Clear liquid diet ? Holding Xarelto ? CTA abdomen stat ordered ? For colonoscopy tomorrow once cleared ? GI, Dr. Broderick consulted. Appreciate recommendations 2. History of atrial fibrillation s/p ablation 3. History of V. tach s/p ICD Patient endorses intermittent palpitations at baseline EKG not done Home anticoagulation Xarelto 20 Mg p.o. daily and rate control with mexiletine 150 Mg p.o. twice daily, sotalol 160 Mg p.o. twice daily and metoprolol XL 50 Mg p.o. daily. Plan: ? Telemetry monitoring ? H&H monitoring every 4 hourly ? Xarelto held for now in light of CO bleed ? Resumed home rate control mexiletine 150 Mg p.o. twice daily, sotalol 160 Mg p.o. twice daily and metoprolol XL 50 Mg p.o. daily ? Once bleeding controlled to discharge patient on Xarelto if cleared by GI. ? To follow-up with wire mesh knitter, Dr. Ny next week. 4. Chronic systolic and diastolic heart failure with reduced ejection fraction [35-40%] Patient denies any SOB, orthopnea, lower extremity swollen On exam lungs clear to auscultation and no signs of LE edema Transthoracic echocardiogram completed on 08/10/2024 findings include: Mild LV dilation. Moderate systolic dysfunction. Moderate hypokinesis of septal wall. Stage I diastolic dysfunction. Estimated EF 35-40%. NYHA stage B class II Plan: ? Daily weights ? Strict input output ? 1500 cc/day fluid restriction 5. CAD s/p stent LCx and LAD Patient had heart cath on 08/11/2024 which showed patent stents, severe systolic congestive heart failure with EF <35%. Plan: ? Resume home medication aspirin 81 Mg p.o. daily as per GI and cardio recs 6. Hypothyroidism Home medication levothyroxine 88 mcg p.o. daily Plan: ? Resumed home medication levothyroxine 88 mcg p.o. daily 7. Essential hypertension On admission BP 110/87 Plan: ? Held home medication lisinopril for now ? Resume home medication metoprolol XL 50 Mg p.o. daily 8. Ecr-zrrbwng-vdtelsssl diabetes mellitus type 2 [5.7] 9. Hyperlipidemia Home medication Mounjaro 10 Mg SC weekly and atorvastatin 80 Mg p.o. at bedtime Plan: ? SSI to cover for any blood glucose spikes ? Resumed home medication atorvastatin 80 Mg p.o. at bedtime Health maintenance: Disposition: Monitoring H&H q 4 hrly. Bowel prep for colonoscopy tomorrow. CTA Diet: Clear liquid Lines: pIVs GI Prophylaxis: Pantoprazole Thrombo Prophylaxis: SCDs Code status: FULL CODE Plan of care discussed with Attending Dr. Alonso and PGY3 Dr. Edwin Huerta MD PGY 1 Attending Provider Attestation/Addendum 54-year-old male patient with coronary artery disease status post stent, AICD, heart failure, atrial fibrillation on Xarelto. The patient recently underwent colonoscopy with polypectomy x [address] Broderick. The patient developed bright red blood per rectum, had 3 episodes already. Patient takes metoprolol and sotalol. Heart rate in the 70s. He denies chest pain. He felt dizzy and lightheaded earlier. Patient was seen with housestaff this afternoon. Dr. Broderick was also at bedside. Will continue to monitor this patient. Be kept n.p.o. for possible intervention. Repeat H&H ordered. Type and screen done in ER.
--- NOTE | 2024-12-27 15:46 | EKG_ITS ---
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: : 1970 Requested By: Amandeep Huerta Order Number: [id number] Reading MD: Amandeep Huerta Measurements Intervals [place] Rate: 72 P: 32 TX: 175 QRS: -75 QRSD: 102 T: 64 QT: 415 QTc: 454 Interpretive Statements SINUS RHYTHM WITH OCCASIONAL VENTRICULAR PREMATURE COMPLEXES LEFT ANTERIOR FASCICULAR BLOCK [QRS AXIS <= -45, QR IN I, RS IN II] ANTEROSEPTAL MYOCARDIAL INFARCTION , OF INDETERMINATE AGE [40+ ms Q WAVE IN V1-V4] Compared to ECG 09/03/2024 08:26:31 Ventricular premature complex(es) now present Left anterior fascicular block now present Sinus bradycardia no longer present Left-axis deviation no longer present Myocardial infarct finding still present /store/S0/[id number].pdf
--- NOTE | 2024-12-27 16:09 | PD.IMCONS ---
HPI Data of Consult Primary Care Provider: Grey Bedoya MD Consult Narrative Reason for consult: hematochezia patient on Xarelto History of present illness: 54-year-old male evaluated in the ER at the request of the physician land surveyor assistant normal patient presented with hematochezia with passage of blood clot and has a picture of zelda blood in the toilet bowl Patient had undergone a fibrotic colonoscopy on 12/19/2024 which led to removal of a transverse colon polyp hot snare polypectomy and the rectal polyp hot snare polypectomy Patient also had diverticulosis left colon no other lesions all the way up to the cecum Patient did very well for over a week postprocedure cc:: cc: Review of Systems Review of Systems Systems Reviewed: All systems reviewed, normal except as documented Past Medical History Surgical History OTHER SURGICAL HX: Permanent cardiac pacemaker Defibrillator Cardiac arrhythmias coronary artery disease Meds Home Medications and Allergies Home Medications ?Medication ?Instructions ?Recorded ?Confirmed ?Type allopurinol 300 mg tablet 300 mg PO QDAY 07/17/21 12/19/24 History rivaroxaban 20 mg tablet (Xarelto) 20 mg PO HS 07/17/21 12/19/24 History tirzepatide 15 mg/0.5 mL 15 mg subcut QWEEK 05/20/24 12/19/24 History subcutaneous pen injector (Mountearo) famotidine 40 mg tablet 40 mg PO HS 08/10/24 12/19/24 History linaclotide 145 mcg capsule 145 mcg PO QDAY 08/10/24 12/19/24 History (Linzess) loratadine 10 mg disintegrating 10 mg PO QDAY 08/10/24 12/19/24 History tablet Held on 12/19/24. Instructions: Resume on 12/20/24. aspirin 81 mg tablet 81 mg PO QDAY 09/02/24 12/19/24 History dapagliflozin propanediol 10 mg 10 mg PO DAILY 09/02/24 12/19/24 History tablet (Farxiga) levothyroxine 88 mcg tablet 88 mcg PO QDAY 09/02/24 12/19/24 History mexiletine 150 mg capsule 150 mg PO BID 09/02/24 12/19/24 History sotalol 160 mg tablet 160 mg PO BID 09/02/24 12/19/24 History metoprolol tartrate 50 mg tablet 50 mg PO QDAY 11/14/24 12/19/24 History mexiletine 150 mg capsule 300 mg PO Q8H 11/14/24 12/19/24 History nifedipine 60 mg tablet,extended 60 mg PO QDAY 12/19/24 12/19/24 History release 24 hr tirzepatide 15 mg/0.5 mL 10 mg subcut QWEEK 12/19/24 12/19/24 History subcutaneous pen injector (Edouardunti) Allergies Allergy/AdvReac Type Severity Reaction Status Date / Time No Known Allergies Allergy Verified 12/27/24 11:04 Exam Vital Signs Temp Pulse Resp BP Pulse Ox O2 Del Method 97.5 F 68 22 H 147/91 H 99 Room Air 12/27/24 11:11 12/27/24 14:07 12/27/24 14:07 12/27/24 11:11 12/27/24 11:11 12/27/24 11:11 Constitutional Comments: Alert oriented Routine Respiratory Exam Comments: Normal to auscultation Routine Abdominal Exam Comments: Soft nontender Results Labs 12/27/24 14:53 12/27/24 12:38 Labs: Short CBC 12/27/24 12/27/24 Range/Units 12:38 14:53 WBC 5.9 7.7 (3.8-10.6) Thou/mm3 Hgb 15.1 14.6 (13.5-16.0) g/dL Hct 44.5 43.7 (41.0-53.0) % Plt Count 324 363 D (140-440) Thou/mm3 BMP 12/27/24 12:38 Sodium 141 Potassium 3.9 Chloride 109 H Carbon Dioxide 23.7 BUN 19 Creatinine 1.1 Glucose 118 H Calcium 9.1 Liver Function 12/27/24 Range/Units 12:38 Total Bilirubin 0.5 (0.3-1.2) mg/dL AST 18 (0-34) U/L ALT 12 (10-49) U/L Alkaline Phosphatase 116 (46-116) U/L Albumin 4.2 (3.5-5.0) gm/dL Assessment and Plan Additional Assessment & Plan Additional Plan: # Hematochezia most likely a diverticular bleed however because of Xarelto patient could have a bleeding from the polypectomy site of the transverse colon of the rectal polyp It is very unusual to bleed a week later from the polypectomy site Plan CTA chest and abdomen GoLytely prep for a colonoscopy As RBC tagged nuclear medicine scan is not available Clear liquid diet Serial CBC Will follow the patient Other medical problems include # Cardiac arrhythmias # Permanent cardiac pacemaker/defibrillator # Coronary artery disease Thank you very much for the opportunity to participate in the care of this patient
--- NOTE | 2024-12-27 16:15 | XR_ITS ---
Examination: CTA abdomen, with intravenous contrast. CTA pelvis, with intravenous contrast. 2-D sagittal and coronal reconstructions. 3-D reconstructions. Date and time of exam: December 27, 2024 at 1746 hrs. Indications: Hematochezia today CTDI vol (mgy) 33 DLP (MGycm) 859 Technique: Multiple CTA images, 2.0 mm slice thickness, obtained abdomen, pelvis, with the high-resolution 64 slice scanner. 100 cc Isovue-370 is administered intravenously. Sagittal and coronal 2-D reconstructions are obtained. 3-D reconstructions, angiographic images are obtained. 3-D postprocessing, including vascular maximum intensity projections. Low dose protocols were performed. One or more of the following dose reduction techniques were used; automated exposure control, adjustment of the mA and/or KV according to patient size, use of iterative reconstruction technique. Findings: No focal liver or splenic lesions Absent gallbladder Negative for pancreatitis No adrenal mass No renal or ureteral calculi, no hydronephrosis Aorta normal size Normal appendix Colonic diverticulosis, no diverticulitis No contrast extravasation in the gastrointestinal tract No contrast blush on the 3-D vascular images Impression: No bleeding site identified Normal appendix Colonic diverticulosis, no diverticulitis
--- NOTE | 2024-12-27 16:19 | PC.NURSE ---
Dr. Huerta contacted about pt's c/o that rectal bleeding is increasing. Pt's redraw cbc was approx 1 hour ago and only slightly low from intial draw. aware, and vss. Pt has another redraw at approx 2000 tonight, states he can wait for that redraw.
[2024-12-27 16:36] VITALS: BP 120/78; PULSE 72; RESP 20; TEMP 36.7; O2SAT 97
[2024-12-27 16:53] VITALS: BP 113/81; PULSE 72
[2024-12-27] MEDS: SOTALOL HCL 80 MG TABLET 160 MG PO (16:53)
[2024-12-27] MEDS: PANTOPRAZOLE INJ 40 MG VIAL IVP (16:55)
[2024-12-27] MEDS: RINGERS LACTATED 1000 ML 1,000 ML 100 ML IV (16:58)
[2024-12-27 17:01] VITALS: PULSE 75; RESP 16; RESP 98
[2024-12-27] MEDS: NA SU/NAHCO3/KC/PEG (Golytely) 4,000 ML BTL 4000 ML PO (17:25)
[2024-12-27] MEDS: MEXILETINE 150 MG CAPSULE PO (17:25)
[2024-12-27 19:00] VITALS: BMI 36.3
[2024-12-27 19:28] LABS: Hematocrit 42.3 % (41.0-53.0); Hemoglobin 14.1 g/dL (13.5-16.0)
--- NOTE | 2024-12-27 19:52 | PC.NURSE ---
Patient arrived in med surg unit from ED around 18:58 PM via gurney.
[2024-12-27 20:00] VITALS: BP 121/81; PULSE 72; RESP 18; TEMP 36.9; O2SAT 97
[2024-12-27] MEDS: ATORVASTATIN CALCIUM 20 MG TABLET 80 MG PO (21:36)
[2024-12-28] VITALS (24 sets, daily range): BP systolic 114–183; BP diastolic 77–110; PULSE 59–87; RESP 12–99; TEMP 36.2–36.8; O2SAT 95–99
[2024-12-28 01:31] LABS: Hemoglobin 12.6 g/dL (13.5-16.0)
--- NOTE | 2024-12-28 03:38 | PC.NURSE ---
notified by MT pt. had a run of V. Tach for 1 minute, pt. has history of Dominique schwarz MD made aware, no new orders at this time. will contiue plan of care
[2024-12-28 05:43] LABS: Basophils % (Auto) 1 % (0-2.5); Eosinophils # (Auto) 0.1 Thou/mm3 (0.0-0.5); Eosinophils % (Auto) 1 % (0-10); Hematocrit 35.8 % (41.0-53.0); Hemoglobin 11.9 g/dL (13.5-16.0); Immature Granulocytes % (Auto) 0 % (0-0); Immature Granulocytes Auto 0.01 Thou/mm3 (0.00-0.00); Lymphocytes # (Auto) 2.1 Thou/mm3 (1.0-4.8); Lymphocytes % (Auto) 40 % (10-50); Mean Corpuscular HGB Conc 33.2 g/dl (31.0-37.0); Mean Corpuscular Hemoglobin 26.9 pg (25.0-35.0); Mean Corpuscular Volume 81 fL (80-100); Monocytes # (Auto) 0.5 Thou/mm3 (0.0-0.8); Monocytes % (Auto) 9 % (0-12); Neutrophils # (Auto) 2.5 Thou/mm3 (1.8-7.7); Neutrophils % (Auto) 49 % (37-80); Nucleated Red Blood Cell % 0 /100 WBC (0); Platelet Count 255 Thou/mm3 (140-440); RDW Standard Deviation 45.6 fL (35.1-43.9); Red Blood Count 4.43 Miln/mm3 (4.50-5.90); White Blood Count 5.2 Thou/mm3 (3.8-10.6)
[2024-12-28 06:20] LABS: Alanine Aminotransferase 12 U/L (10-49); Albumin, Serum 3.4 gm/dL (3.5-5.0); Albumin/Globulin Ratio 1.5 (1.2-2.2); Alkaline Phosphatase 90 U/L (46-116); Anion Gap 9 (7-16); Aspartate Amino Transferase 14 U/L (0-34); BUN/Creatinine Ratio 20 Ratio (12-20); Bilirubin,Total 0.6 mg/dL (0.3-1.2); Blood Urea Nitrogen 18 mg/dL (9-23); Calcium 8.1 mg/dL (8.3-10.6); Calcium (Corrected) 8.6 mg/dL (8.5-10.1); Carbon Dioxide 25.6 mMol/L (20.0-31.0); Chloride 107 mMol/L (98-107); Creatinine (Component) 0.9 mg/dL (0.6-1.3); Estimated Creatinine Clearance 114.2 mL/min (>60); Globulin 2.3 gm/dL (2.3-3.5); Glucose 78 mg/dL (74-106); Magnesium 2.1 mg/dL (1.6-2.6); Osmolality,Calculated 284 (275-295); Phosphorous 2.8 mg/dL (2.4-5.1); Potassium 3.4 mMol/L (3.4-5.1); Sodium 142 mMol/L (136-145); Thyroid Stimulating Hormone 1.66 uIU/mL (0.55-4.78); Total Protein 5.7 gm/dL (5.7-8.2); eGFR > 60 See Note
[2024-12-28] MEDS: LEVOTHYROXINE SODIUM 88 MCG TABLET PO (06:35)
[2024-12-28] MEDS: SOTALOL HCL 80 MG TABLET 160 MG PO ×2 (06:35→16:49)
[2024-12-28] MEDS: MEXILETINE 150 MG CAPSULE PO ×2 (06:37→16:50)
--- NOTE | 2024-12-28 07:38 | EKG_ITS ---
[facility] Test Date: 2024-12-28 Pat Name: CHUY CHUNG Department: Room: S365A Gender: Male Mate Relief: MOISES : 1970 Requested By: Ishaan Haywood Order Number: [id number] Reading MD: Ishaan Haywood Measurements Intervals [place] Rate: 69 P: 45 MO: 179 QRS: -73 QRSD: 110 T: 55 QT: 428 QTc: 461 Interpretive Statements SINUS RHYTHM LEFT ANTERIOR FASCICULAR BLOCK [QRS AXIS <= -45, QR IN I, RS IN II] ANTEROSEPTAL MYOCARDIAL INFARCTION , OF INDETERMINATE AGE [40+ ms Q WAVE IN V1-V4] Compared to ECG 12/27/2024 17:19:07 Ventricular premature complex(es) no longer present Myocardial infarct finding still present /store/S0/[id number]/ecg/[id number].pdf
--- NOTE | 2024-12-28 07:38 | PC.NURSE ---
medical records technician called and informed this nurse pateint had episode of V fib torsades for almost a minute. Upon assessment to patient, he is complaining of dizziness and tingling on his whole body for few minutes. Patient's BP os 138/94, HR 73 and BS 104. MD notified.
[2024-12-28] MEDS: POTASSIUM CHL 10 mEq IVPB 10 MEQ/100 ML BAG 100 MEQ IV (07:58)
[2024-12-28] MEDS: POTASSIUM CHLORIDE 20 mEq TABCR PO (07:58)
[2024-12-28] MEDS: PANTOPRAZOLE INJ 40 MG VIAL IVP (09:00)
[2024-12-28] MEDS: ASPIRIN EC 81 MG TABEC PO (09:01)
[2024-12-28] MEDS: METOPROLOL SUCCINATE XL 25 MG TABCR 50 MG PO (09:01)
[2024-12-28] MEDS: lorataDINE 10 MG TABLET PO (09:01)
[2024-12-28 09:19] LABS: Hematocrit 37.3 % (41.0-53.0); Hemoglobin 12.3 g/dL (13.5-16.0)
[2024-12-28] MEDS: POTASSIUM CHL 10 mEq IVPB 10 MEQ/100 ML BAG 50 MEQ IV (09:44)
[2024-12-28] MEDS: POTASSIUM CHLORIDE 10% 20 MEQ/15 ML UDC 40 MEQ PO (10:46)
--- NOTE | 2024-12-28 11:27 | PC.SS ---
Ar Proctor is a 54-year-old male admitted to [facility] for Lower GI Bleed. SS conducted bedside contact with the patient to complete initial assessment and to discuss discharge planning.? Patient confirmed demographic information. Patient identifies sister Tommy Haerd [phone] as his surrogate decision maker. Patient resides at home, with his mother and sister. Pt states he is able to complete all ADL?s independently, no need for any source of DME. Pts PCP is Dr. Bedoya (last vist was last week and pt has apt for Dec 30) and pharmacy of choice is [facility]. DC option discussed and pt wishes to return home. Pts family will provide transportation upon DC. No further intervention required at this time, social security benefits interviewer would be available to address any further concerns. DC Plan: Home Contact: Sister PCP: Aureliano
[2024-12-28 12:38] LABS: Hematocrit 36.7 % (41.0-53.0); Hemoglobin 12.6 g/dL (13.5-16.0)
[2024-12-28 12:56] LABS: Albumin, Serum 3.8 gm/dL (3.5-5.0); Anion Gap 6 (7-16); BUN/Creatinine Ratio 13 Ratio (12-20); Blood Urea Nitrogen 13 mg/dL (9-23); Calcium 8.7 mg/dL (8.3-10.6); Calcium (Corrected) 8.9 mg/dL (8.5-10.1); Chloride 108 mMol/L (98-107); Estimated Creatinine Clearance 102.8 mL/min (>60); Glucose 112 mg/dL (74-106); Osmolality,Calculated 282 (275-295); Phosphorous 2.6 mg/dL (2.4-5.1); Potassium 4.4 mMol/L (3.4-5.1); Sodium 141 mMol/L (136-145); eGFR > 60 See Note
--- NOTE | 2024-12-28 13:08 | ESPR_ITS ---
Documentation for date of: 12/28/24 Senior resident attestation: Patient is a 54-year-old male With a past medical history of hypertension, hypothyroidism, V. tach/arrhythmias status post ICD placement, HFrEF, A-fib status post ablation, followed by cardiology EP at [facility] by Dr. Ashford, was on anticoagulation with Xarelto, on antiarrhythmic medications, including sotalol, mexiletine and metoprolol, who presented with GI bleed following recent colonoscopy and hot-snare polypectomy. Repeat colonoscopy was done, no side effect of bleeding was found, per Dr. Broderick patient can be discharged pending cardio recommendations and started on Xarelto after 24 hours on December 30. Patient evaluated and examined at the bedside, plan of care discussed with rest of the team including my attending physician, except as noted. Quresh PGY2 Subjective Subjective Interval history: 12/28/2024: Overnight patient's hematocrit/hemoglobin were trended and went from 14.1-12.6-11.9; patient also had some episodes of bloody diarrhea. Received a call from nurse regarding telemetry alerting for 1 minute episode of V-fib (patient has ICD placement which did not fire). Patient seen and examined this morning reporting that during the episode of V-fib he felt tingling sensation and warmth in his chest but that no shock was administered. Patient states that this this morning he has less noticeable blood in his stool. Potassium has been on the lower end and IV repletion was attempted; however, patient does have some pain with IV potassium, as a result switched over to p.o. Patient continues to take GoLytely and will be switched to n.p.o. for colonoscopy scheduled for today (12/28/2024) with gastroenterology. Exam Vital Signs Temp Pulse Resp BP Pulse Ox O2 Del Method 98.3 F 73 17 138/94 H 98 Room Air 12/28/24 08:00 12/28/24 09:01 12/28/24 08:00 12/28/24 09:01 12/28/24 08:00 12/28/24 08:00 Narrative Exam Physical Exam: GENERAL: Awake, answers questions appropriately, appears stated age HEENT: NC/AT. Moist mucosa. PERRLA/EOMI. CARDIO: Heart RRR, no obvious murmurs, no JVD. PULM: No coughing or visible SOB. Lungs CTA B/L. GI: Abdomen soft, NT/ND, +BS. SKIN/MSK/EXT: No wounds/discoloration/rashes/edema/amputations noted. +Pedal pulses present B/L. NEURO: Oriented x3, no focal neurological deficits, Moves extremities x4. Objective Labs 12/29/24 03:58 12/29/24 03:58 Labs: Laboratory Results - last 24 hr 12/27/24 12/27/24 12/27/24 12:38 14:53 19:10 WBC 7.7 RBC 5.47 Hgb 14.6 14.1 Hct 43.7 42.3 MCV 80 MCH 26.7 MCHC 33.4 RDW Std Deviation 44.7 H Plt Count 363 D Neut % (Auto) 67 Lymph % (Auto) 24 Chaves % (Auto) 7 Eos % (Auto) 2 Baso % (Auto) 1 Neut # (Auto) 5.1 Lymph # (Auto) 1.8 Chaves # (Auto) 0.6 Eos # (Auto) 0.1 Baso # (Auto) 0.1 Immature Gran # (Auto) 0.02 H Absolute Nucleated RBC 0.00 Immature Gran % 0 Nucleated RBC % 0 Sodium 141 Potassium 3.9 Chloride 109 H Carbon Dioxide 23.7 Anion Gap 8 BUN 19 Creatinine 1.1 Estim Creat Clear Calc 94.2 eGFR > 60 BUN/Creatinine Ratio 17 Glucose 118 H Calculated Osmolality 284 Calcium 9.1 Corrected Calcium 9.1 Phosphorus Magnesium Total Bilirubin 0.5 AST 18 ALT 12 Alkaline Phosphatase 116 Total Protein 6.7 Albumin 4.2 Globulin 2.5 Albumin/Globulin Ratio 1.7 TSH 12/28/24 12/28/24 12/28/24 01:13 04:30 08:55 WBC 5.2 RBC 4.43 L Hgb 12.6 L 11.9 L 12.3 L Hct 37.0 L 35.8 L 37.3 L MCV 81 MCH 26.9 MCHC 33.2 RDW Std Deviation 45.6 H Plt Count 255 D Neut % (Auto) 49 Lymph % (Auto) 40 Chaves % (Auto) 9 Eos % (Auto) 1 Baso % (Auto) 1 Neut # (Auto) 2.5 Lymph # (Auto) 2.1 Chaves # (Auto) 0.5 Eos # (Auto) 0.1 Baso # (Auto) 0.0 Immature Gran # (Auto) 0.01 H Absolute Nucleated RBC 0.00 Immature Gran % 0 Nucleated RBC % 0 Sodium 142 Potassium 3.4 D Chloride 107 Carbon Dioxide 25.6 Anion Gap 9 BUN 18 Creatinine 0.9 Estim Creat Clear Calc 114.2 eGFR > 60 BUN/Creatinine Ratio 20 Glucose 78 Calculated Osmolality 284 Calcium 8.1 L Corrected Calcium 8.6 Phosphorus 2.8 Magnesium 2.1 Total Bilirubin 0.6 AST 14 ALT 12 Alkaline Phosphatase 90 D Total Protein 5.7 Albumin 3.4 L D Globulin 2.3 Albumin/Globulin Ratio 1.5 TSH 1.66 12/28/24 12:28 WBC RBC Hgb 12.6 L Hct 36.7 L MCV MCH MCHC RDW Std Deviation Plt Count Neut % (Auto) Lymph % (Auto) Chaves % (Auto) Eos % (Auto) Baso % (Auto) Neut # (Auto) Lymph # (Auto) Chaves # (Auto) Eos # (Auto) Baso # (Auto) Immature Gran # (Auto) Absolute Nucleated RBC Immature Gran % Nucleated RBC % Sodium 141 Potassium 4.4 D Chloride 108 H Carbon Dioxide 27.0 Anion Gap 6 L BUN 13 Creatinine 1.0 Estim Creat Clear Calc 102.8 eGFR > 60 BUN/Creatinine Ratio 13 Glucose 112 H Calculated Osmolality 282 Calcium 8.7 Corrected Calcium 8.9 Phosphorus 2.6 Magnesium Total Bilirubin AST ALT Alkaline Phosphatase Total Protein Albumin 3.8 Globulin Albumin/Globulin Ratio TSH Quality Measures Quality Measures VTE prophylaxis (SCDs) Assessment & Plan Assessment Current Active Medications: Generic Name Dose Route Start Last Admin Trade Name Freq PRN Reason Stop Dose Admin Acetaminophen 650 mg 12/27/24 15:29 Acetaminophen 325 Mg Tablet PO 01/26/25 15:28 Q6H PRN Fever >100.3 Hydrocodone Bitart/Acetaminophen 1 tab 12/27/24 15:29 Hydrocodone/Apap 5/325 Tablet PO 01/01/25 15:28 Q4HR PRN PAIN SCALE 4-10(Mod-Sev Aspirin 81 mg 12/28/24 09:00 12/28/24 09:01 Aspirin Ec 81 Mg Tabec PO 01/27/25 08:59 81 mg QDAY JOVANY Administration Atorvastatin Calcium 80 mg 12/27/24 21:00 12/27/24 21:36 Atorvastatin Calcium 20 Mg Tablet PO 01/26/25 20:59 80 mg HS JOVANY Administration Mexiletine 150 Mg 0 ea 12/28/24 16:30 Capsule PO 01/27/25 16:29 BID@0630,1630 [facility] Dextrose 50 ml 12/27/24 15:36 Dextrose 50%-Water Inj 50 Ml Syringe IV 01/26/25 15:35 Q15MIN PRN BG <50 OR BG <70 & pt unresponsive Glucagon 1 mg 12/27/24 15:36 Glucagon Inj 1 Mg Vial IM Q15MIN PRN BG <70, and no IV access Insulin Human Lispro 0 unit 12/27/24 17:00 12/28/24 11:51 Insulin Lispro (Admelog) 1 Unit/0.01 Ml Unit SC 01/26/25 16:59 Not Given ACHS JOVANY Protocol Levothyroxine Sodium 88 mcg 12/28/24 06:00 12/28/24 06:35 Levothyroxine Sodium 88 Mcg Tablet PO 01/27/25 05:59 88 mcg ACBR JOVANY Administration Loratadine 10 mg 12/28/24 09:00 12/28/24 09:01 Loratadine 10 Mg Tablet PO 01/27/25 08:59 10 mg QDAY JOVANY Administration Metoprolol Succinate 50 mg 12/29/24 06:30 Metoprolol Succinate Xl 25 Mg Tabcr PO 01/28/25 06:29 QDAY@0630 [facility] Nifedipine 60 mg 12/28/24 09:00 Nifedipine Xl 30 Mg Tabcr PO 01/27/25 08:59 QDAY [facility] Ondansetron HCl 4 mg 12/27/24 15:29 Ondansetron Inj 2 Mg/Ml Inj 2 Ml IV 01/26/25 15:28 Q6H PRN NAUSEA OR VOMITING Protocol Pantoprazole Sodium 40 mg 12/27/24 15:45 12/28/24 09:00 Pantoprazole Inj 40 Mg Vial IVP 01/26/25 15:44 40 mg QDAY JOVANY Administration Sotalol HCl 160 mg 12/28/24 16:30 Sotalol Hcl 80 Mg Tablet PO 01/27/25 16:29 BID@0630,1630 [facility] Plan 54-year-old male with past medical history significant for essential hypertension, hypothyroidism, [id number] diabetes mellitus type 2, chronic systolic congestive heart failure with reduced ejection fraction [35- 40%] history of V. tach s/p ICD placement, atrial fibrillation s/p ablation 08/11/2024 at [facility] by EP Dr. Ashford on anticoagulation with Xarelto and rate control with mexiletine 150 Mg p.o. twice daily and sotalol 160 Mg p.o. twice daily presented with a chief complaint of lower GI bleed will have colonoscopy 2/2 with GI to provide post-procedure recommendations. #GI bleed for investigation, likely lower Patient presented with 3 episodes of zelda melena/hematochezia episodes Of note patient had colonoscopy done 12/19/2024 findings include: Hemorrhoids on perianal exam. Sigmoid diverticulosis. Large 1 cm or greater polyp in the transverse colon Resected with hot snare and hemostasis achieved. Small polyp in the rectum removed with hot snare and hemostasis achieved. CTA abdomen shows: No bleeding site identified, normal appendix and colonic diverticulosis, no diverticulitis H-h trend 12.6 ==> 11.9 ==> 12.3 ==> 12.6 with no transfusions Plan: NPO prior to colonoscopy Continue to holding Xarelto Colonoscopy today GI, Dr. Broderick consulted. Appreciate recommendations #History of atrial fibrillation s/p ablation #History of V. tach s/p ICD Patient endorses intermittent palpitations at baseline Followed by Cardiology, Dr. Ny Has history of EP ablation with Dr. Ashford in [place] [facility] anticoagulation Xarelto 20 Mg p.o. daily and rate control with mexiletine 150 Mg p.o. twice daily, sotalol 160 Mg p.o. twice daily and metoprolol XL 50 Mg p.o. daily. Plan: Telemetry monitoring Xarelto held for now in light of GA bleed Continue home rate control mexiletine 150 Mg p.o. twice daily, sotalol 160 Mg p.o. twice daily and metoprolol XL 50 Mg p.o. daily Once bleeding controlled to discharge patient on Xarelto if cleared by GI. To follow-up with statistical methods teacher, Dr. Ny next week. #Chronic systolic and diastolic heart failure with reduced ejection fraction [35-40%] NYHA stage B class II Patient denies any SOB, orthopnea, lower extremity swollen ECHO completed on 08/10/2024 findings include: Mild LV dilation. Moderate systolic dysfunction. Moderate hypokinesis of septal wall. Stage I diastolic dysfunction. Estimated EF 35-40%. Plan: Daily weights Strict I/Os 1500 cc/day fluid restriction #CAD s/p stent LCx and LAD Patient had heart cath on 08/11/2024 which showed patent stents, severe systolic congestive heart failure with EF <35%. Plan: Continue home medication aspirin 81 Mg p.o. daily as per GI and cardio recs #Hypothyroidism Home medication levothyroxine 88 mcg p.o. daily Plan: Continue home medication levothyroxine 88 mcg p.o. daily #Essential hypertension On admission BP 110/87 Plan: Held home medication lisinopril for now Continue home medication metoprolol XL 50 Mg p.o. daily #Whk-exiiwol-imxkccova diabetes mellitus type 2 [A1c 5.7] #Hyperlipidemia ASCVD 5.1% Risk of cardiovascular event (coronary or stroke or non-fatal MO or stroke) in next 10 years. Home medication Mounjaro 10 Mg SC weekly and atorvastatin 80 Mg p.o. at bedtime Plan: SSI to cover for any blood glucose spikes Continue home medication atorvastatin 80 Mg p.o. at bedtime (can consider decreasing to moderate-intensity) Hospital Management: Bowel: GoLitely Diet: Clear liquid Lines: PIVs GI Prophylaxis: Pantoprazole DVT Prophylaxis: SCDs Disposition: Bowel prep for colonoscopy completed; colonoscpy with GI today Code: Full Patient seen and examined with attending Dr. Alonso and senior resident Dr. Chastity Gurrola, PGY-1 Attending Provider Attestation/Addendum 54-year-old male patient who was admitted yesterday following a GI bleed/hematochezia. He had recent colonoscopy with polypectomy x 2. The patient is on anticoagulant for A-fib. Today he is hemoglobin is above 12. There has been a 3 point drop in hemoglobin. The patient is on mexiletine, sotalol and metoprolol. Blood pressure is stable. GI follow-up.
[2024-12-28 16:58] LABS: Hematocrit 38.5 % (41.0-53.0); Hemoglobin 12.9 g/dL (13.5-16.0)
[2024-12-28 19:11] LABS: Hematocrit 35.7 % (41.0-53.0); Hemoglobin 12.2 g/dL (13.5-16.0)
[2024-12-28] MEDS: ATORVASTATIN CALCIUM 20 MG TABLET 80 MG PO (21:02)
[2024-12-28 21:43] LABS: Hematocrit 33.8 % (41.0-53.0); Hemoglobin 11.6 g/dL (13.5-16.0)
[2024-12-29] VITALS (10 sets, daily range): BP systolic 136–159; BP diastolic 88–103; PULSE 61–105; RESP 18–98; TEMP 36.2–37.1; O2SAT 95–98
[2024-12-29 05:46] LABS: Basophils % (Auto) 1 % (0-2.5); Eosinophils # (Auto) 0.1 Thou/mm3 (0.0-0.5); Eosinophils % (Auto) 2 % (0-10); Hematocrit 33.7 % (41.0-53.0); Hemoglobin 11.3 g/dL (13.5-16.0); Immature Granulocytes % (Auto) 0 % (0-0); Immature Granulocytes Auto 0.01 Thou/mm3 (0.00-0.00); Lymphocytes # (Auto) 1.9 Thou/mm3 (1.0-4.8); Lymphocytes % (Auto) 33 % (10-50); Mean Corpuscular HGB Conc 33.5 g/dl (31.0-37.0); Mean Corpuscular Hemoglobin 26.7 pg (25.0-35.0); Mean Corpuscular Volume 80 fL (80-100); Monocytes # (Auto) 0.5 Thou/mm3 (0.0-0.8); Monocytes % (Auto) 9 % (0-12); Neutrophils # (Auto) 3.1 Thou/mm3 (1.8-7.7); Neutrophils % (Auto) 55 % (37-80); Nucleated Red Blood Cell % 0 /100 WBC (0); Platelet Count 266 Thou/mm3 (140-440); RDW Standard Deviation 45.1 fL (35.1-43.9); Red Blood Count 4.23 Miln/mm3 (4.50-5.90); White Blood Count 5.6 Thou/mm3 (3.8-10.6)
[2024-12-29] MEDS: METOPROLOL SUCCINATE XL 25 MG TABCR 50 MG PO (06:05)
[2024-12-29] MEDS: LEVOTHYROXINE SODIUM 88 MCG TABLET PO (06:06)
[2024-12-29] MEDS: SOTALOL HCL 80 MG TABLET 160 MG PO (06:06)
[2024-12-29] MEDS: MEXILETINE 150 MG CAPSULE PO (06:06)
--- NOTE | 2024-12-29 06:20 | PC.NURSE ---
called Dr. Clemens regarding patient feeling lightheaded and out of it . Patient states he gets these symptoms when he has not been getting his medication routinely. Current BP 159/103 which patient has gotten his dose of Metoprolol and other medications. No c/o chest pain or other symptoms. Patient's blood glucose is 103. Patient also requesting for all his medications to be restarted. Per MD will let the day team know.
[2024-12-29 06:21] LABS: Alanine Aminotransferase 12 U/L (10-49); Albumin, Serum 3.5 gm/dL (3.5-5.0); Albumin/Globulin Ratio 1.7 (1.2-2.2); Alkaline Phosphatase 99 U/L (46-116); Anion Gap 8 (7-16); Aspartate Amino Transferase 13 U/L (0-34); BUN/Creatinine Ratio 11 Ratio (12-20); Bilirubin,Total 0.3 mg/dL (0.3-1.2); Blood Urea Nitrogen 11 mg/dL (9-23); Calcium 8.7 mg/dL (8.3-10.6); Calcium (Corrected) 9.1 mg/dL (8.5-10.1); Carbon Dioxide 26.8 mMol/L (20.0-31.0); Chloride 107 mMol/L (98-107); Estimated Creatinine Clearance 102.8 mL/min (>60); Globulin 2.1 gm/dL (2.3-3.5); Glucose 101 mg/dL (74-106); Magnesium 2.2 mg/dL (1.6-2.6); Osmolality,Calculated 282 (275-295); Phosphorous 3.6 mg/dL (2.4-5.1); Potassium 3.5 mMol/L (3.4-5.1); Sodium 142 mMol/L (136-145); Total Protein 5.6 gm/dL (5.7-8.2); eGFR > 60 See Note
[2024-12-29] MEDS: POTASSIUM CHLORIDE 20 mEq TABCR 40 MEQ PO (09:09)
[2024-12-29] MEDS: POTASSIUM CHLORIDE 20 mEq TABCR PO (09:09)
[2024-12-29] MEDS: lorataDINE 10 MG TABLET PO (09:10)
[2024-12-29] MEDS: ASPIRIN EC 81 MG TABEC PO (09:10)
[2024-12-29] MEDS: PANTOPRAZOLE INJ 40 MG VIAL IVP (09:10)
--- NOTE | 2024-12-29 09:56 | PC.SS ---
Follow up note: Had colonoscopy yesterday. Possible d/c if ok by Dr. Broderick. Pt saadia return home.
[2024-12-29] MEDS: Lisinopril 2.5 MG TABLET PO (10:48)
--- NOTE | 2024-12-29 10:50 | PD.IMPROG ---
Documentation for date of: 12/29/24 Subjective Subjective Interval history: Hemoglobin hematocrit stable at 11.3 and 33.7 Case discussed with internal medicine team okay to discharge patient home to be followed by the PCP No GI follow-up necessary Exam Vital Signs Temp Pulse Resp BP Pulse Ox O2 Del Method O2 Flow Rate 98.7 F 63 18 147/94 H 96 Room Air 3 12/29/24 07:54 12/29/24 10:48 12/29/24 07:54 12/29/24 10:48 12/29/24 07:54 12/29/24 07:54 12/28/24 17:38 Objective Labs 12/29/24 03:58 12/29/24 03:58 Labs: Laboratory Results - last 24 hr 12/28/24 12/28/24 12/28/24 12:28 16:50 19:00 WBC RBC Hgb 12.6 L 12.9 L 12.2 L Hct 36.7 L 38.5 L 35.7 L MCV MCH MCHC RDW Std Deviation Plt Count Neut % (Auto) Lymph % (Auto) [place] % (Auto) Eos % (Auto) Baso % (Auto) Neut # (Auto) Lymph # (Auto) [place] # (Auto) Eos # (Auto) Baso # (Auto) Immature Gran # (Auto) Absolute Nucleated RBC Immature Gran % Nucleated RBC % Sodium 141 Potassium 4.4 D Chloride 108 H Carbon Dioxide 27.0 Anion Gap 6 L BUN 13 Creatinine 1.0 Estim Creat Clear Calc 102.8 eGFR > 60 BUN/Creatinine Ratio 13 Glucose 112 H Calculated Osmolality 282 Calcium 8.7 Corrected Calcium 8.9 Phosphorus 2.6 Magnesium Total Bilirubin AST ALT Alkaline Phosphatase Total Protein Albumin 3.8 Globulin Albumin/Globulin Ratio 12/28/24 12/29/24 21:24 03:58 WBC 5.6 RBC 4.23 L Hgb 11.6 L 11.3 L Hct 33.8 L 33.7 L MCV 80 MCH 26.7 MCHC 33.5 RDW Std Deviation 45.1 H Plt Count 266 Neut % (Auto) 55 Lymph % (Auto) 33 [place] % (Auto) 9 Eos % (Auto) 2 Baso % (Auto) 1 Neut # (Auto) 3.1 Lymph # (Auto) 1.9 [place] # (Auto) 0.5 Eos # (Auto) 0.1 Baso # (Auto) 0.0 Immature Gran # (Auto) 0.01 H Absolute Nucleated RBC 0.00 Immature Gran % 0 Nucleated RBC % 0 Sodium 142 Potassium 3.5 D Chloride 107 Carbon Dioxide 26.8 Anion Gap 8 BUN 11 Creatinine 1.0 Estim Creat Clear Calc 102.8 eGFR > 60 BUN/Creatinine Ratio 11 L Glucose 101 Calculated Osmolality 282 Calcium 8.7 Corrected Calcium 9.1 Phosphorus 3.6 Magnesium 2.2 Total Bilirubin 0.3 AST 13 ALT 12 Alkaline Phosphatase 99 Total Protein 5.6 L Albumin 3.5 Globulin 2.1 L Albumin/Globulin Ratio 1.7 Impressions Impression: # Status post endoscopic intervention for GI bleed doing well Okay to discharge patient home Assessment & Plan A&P Narrative # Hematochezia most likely a diverticular bleed however because of Xarelto patient could have a bleeding from the polypectomy site of the transverse colon of the rectal polyp It is very unusual to bleed a week later from the polypectomy site Plan CTA chest and abdomen GoLytely prep for a colonoscopy As RBC tagged nuclear medicine scan is not available Clear liquid diet Serial CBC Will follow the patient Other medical problems include # Cardiac arrhythmias # Permanent cardiac pacemaker/defibrillator # Coronary artery disease Thank you very much for the opportunity to participate in the care of this patient Time Spent With Patient Time: Total time spent is greater than 50% in coordination of care (as documented) at patient's floor/unit and/or counseling patient:
--- NOTE | 2024-12-29 12:13 | PC.NURSE ---
Patient has discharge orders. Residents informed this nurse to wait for the floor nurse today first before discharging the patient.
[2024-12-29 12:23] LABS: Ferritin 15 ng/mL (10.5-307.3); Iron 28 mcg/dL (65-175); Percent Iron Saturation 10 % (20-55); Total Iron Binding Capacity 269 mcg/dL (250-425); Unsaturated Iron Binding 241 (225-295)
--- NOTE | 2024-12-29 13:30 | PD.IMCONS ---
HPI Data of Consult Requesting Physician: Branden Smith DO Primary Care Provider: Grey Bedoya MD Consult Narrative Reason for consult: History of VT and Afib /sp ablation, paroxysmal atrial fibrillation on ac History of present illness: 53-year-old male with a past medical of CAD status post PCI to proximal LAD as well as proximal LCx, last cath in July 2024 showed patent stents, severe systolic congestive heart failure with an EF of 35% status post single chamber ICD about/send with placement in 2019, history of sustained VT status post multiple ablations with VT induction in [place] 08/15/2024 as well as [place] and now with residual inducible VT on sotalol, Toprol and mexiletine, paroxysmal atrial fibrillation on Xarelto, essential hypertension, type 2 diabetes mellitus, obesity, hypothyroidism, GERD, gout presented to the emergency department for further evaluation of bright red rectal bleed. Patient apparently had an colonoscopy done 1 week ago and did well for the next 5 days but then started noticing zelda blood in the toilet since yesterday as well as this morning and hence came to the emergency department for further evaluation. Patient denied any Melena in the last few days or any nausea vomiting or abdominal pain. Denies any chest pain chest pressure shortness of breath orthopnea PND dizziness syncope or fall or palpitations or any fever or chills. In the emergency department patient was found to have stable vitals BP of 140/90 mmHg heart rate of 68/min respiratory rate of 28 to, temp of 97.5 and saturation 99% on room air. Hemoglobin was 15.1 and repeat hemoglobin was around 11 BUN 19 creatinine one 1.1. EKG normal sinus rhythm with occasional PVCs in the Q waves in the anteroseptal leads indicating old KS. No acute ST-T changes history of ischemia. Patient was admitted to the hospital and serial hemoglobin was monitored and hemoglobin trended down from 15.1-11.6. Patient was hemodynamically stable. GI team was consulted again and patient had a colonoscopy which showed hemorrhoids or perianal exam few small mouth diverticula in sigmoid and descending colon without any evidence of any diverticular bleeding. Polypectomy site as well as the transverse colonic area visualized and couple of endoclips were placed.. Patient was on Xarelto for his atrial fibrillation which was stopped on admission and after discussing with me in the also most of his cardiac medication was stopped. Patient's primary doctor called me this morning for cardiac evaluation to restart all his medications and optimization of his cardiac care. cc:: cc: Branden Smith DO Review of Systems Review of Systems Systems Reviewed: All systems reviewed, normal except as documented Past Medical History Past Medical History Comments PMH COMMENT: Past medical history: ?Atrial fibrillation s/p ablation 08/11/2024 at [facility] by EP Dr. Ashford ? History of V. tach s/p ICD ? Essential hypertension ? Hypothyroidism ? [id number] diabetes mellitus type 2 ? Chronic systolic congestive heart failure with reduced ejection fraction [35-40%] ? CAD s/p stents LCx and LAD ?Osteoarthritis bilateral knees Medication list: Allopurinol 300 Mg p.o. daily Aspirin 81 Mg p.o. daily 50 Mg p.o. at bedtime Farxiga 10 Mg p.o. daily Famotidine 40 Mg p.o. daily Levothyroxine 88 mcg p.o. daily Linzess 145 Mg p.o. daily Lisinopril 2.5 Mg p.o. daily Loratadine 10 Mg p.o. daily Metoprolol XL 50 Mg p.o. daily Mexiletine 150 Mg p.o. twice daily Nifedipine XL 60 Mg p.o. daily Xarelto 20 Mg p.o. daily Sotalol 160 Mg p.o. twice daily Mounjaro 10 Mg SC weekly Magnesium 400 Mg p.o. daily Past surgical history: ?Cholecystectomy 2014 ? 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 He lives with his sister and mom and ambulates independently and carries out all ADLs. Patient attended 1 year of college before dropping out Patient has remote 5-pack-year smoking history but quit greater than 25 years ago. Patient has history of heavy alcohol use in his 20s including Bacardi, tequila and beers. Quit 30 years ago Patient endorses remote history of crank and speed in his 20s. Family History: Dad?KS in his 70s Brother?KS in his 50s Brother?KS in his 40s Brother?ESRD Meds Home Medications and Allergies Home Medications ?Medication ?Instructions ?Recorded ?Confirmed ?Type allopurinol 300 mg tablet 300 mg PO QDAY 07/17/21 12/27/24 History rivaroxaban 20 mg tablet (Xarelto) 20 mg PO HS 07/17/21 12/27/24 History tirzepatide 15 mg/0.5 mL 15 mg subcut QWEEK 05/20/24 12/27/24 History subcutaneous pen injector (Gracie) linaclotide 145 mcg capsule 145 mcg PO QDAY 08/10/24 12/27/24 History (Linnelys) dapagliflozin propanediol 10 mg 10 mg PO DAILY 09/02/24 12/27/24 History tablet (Farxiga) levothyroxine 88 mcg tablet 88 mcg PO QDAY 09/02/24 12/27/24 History mexiletine 150 mg capsule 150 mg PO BID 09/02/24 12/27/24 History sotalol 160 mg tablet 160 mg PO BID 09/02/24 12/27/24 History metoprolol tartrate 50 mg tablet 50 mg PO QDAY 11/14/24 12/27/24 History nifedipine 60 mg tablet,extended 60 mg PO QDAY 12/19/24 12/27/24 History release 24 hr loratadine 10 mg tablet 10 mg PO DAILY 12/27/24 12/27/24 History Allergies Allergy/AdvReac Type Severity Reaction Status Date / Time No Known Allergies Allergy Verified 12/27/24 11:04 Exam Vital Signs Temp Pulse Resp BP Pulse Ox O2 Del Method O2 Flow Rate 97.2 F 65 18 143/95 H 95 Room Air 3 12/29/24 11:45 12/29/24 12:00 12/29/24 11:45 12/29/24 11:45 12/29/24 11:45 12/29/24 07:54 12/28/24 17:38 Narrative Exam General: Alert and oriented x3. In no acute distress. Obese Eyes: Pupils are equal and reactive to light bilaterally. HEENT: Atraumatic, normocephalic. No JVD noted. Mucosa moist. Cardiovascular: Normal S1 and S2. Normal rate and regular rhythm. 2 or 6 systolic murmur at the apex as well as the aortic area, no peripheral pitting edema noted. Respiratory: No respiratory distress. Lungs are clear to auscultation bilaterally. No wheezing or crackles heard. Abdomen: Soft, nontender, nondistended. Skin: No rash. Warm to touch. Musculoskeletal: No gross injuries. Able to move all 4 extremities. Neuro: Alert and oriented x3. No focal neuro deficits. Psych: Normal affect and mood Results Labs 12/29/24 03:58 12/29/24 03:58 Labs: Short CBC 12/29/24 Range/Units 03:58 WBC 5.6 (3.8-10.6) Thou/mm3 Hgb 11.3 L (13.5-16.0) g/dL Hct 33.7 L (41.0-53.0) % Plt Count 266 (140-440) Thou/mm3 BMP 12/29/24 03:58 Sodium 142 Potassium 3.5 D Chloride 107 Carbon Dioxide 26.8 BUN 11 Creatinine 1.0 Glucose 101 Calcium 8.7 Liver Function 12/29/24 Range/Units 03:58 Total Bilirubin 0.3 (0.3-1.2) mg/dL AST 13 (0-34) U/L ALT 12 (10-49) U/L Alkaline Phosphatase 99 (46-116) U/L Albumin 3.5 (3.5-5.0) gm/dL Assessment and Plan Additional Assessment & Plan Additional Plan: 53-year-old male with a past medical of CAD status post PCI to proximal LAD as well as proximal LCx, last cath in July 2024 showed patent stents, severe systolic congestive heart failure with an EF of 35% status post single chamber ICD about/send with placement in 2019, history of sustained VT status post multiple ablations with VT induction in [place] 08/15/2024 as well as [place] and now with residual inducible VT on sotalol, Toprol and mexiletine, paroxysmal atrial fibrillation on Xarelto, essential hypertension, type 2 diabetes mellitus, obesity, hypothyroidism, GERD, gout presented to the emergency department for further evaluation of bright red rectal bleed. 1. Acute lower GI bleed 2. Acute blood loss anemia 3. Paroxysmal atrial fibrillation status post ablation 4. Sustained V. tach status post AICD as well as multiple injection ablations in [place] as well as [place]. 5. Chronic systolic and diastolic heart failure with severely reduced EF around 35%. 6. CAD status post LAD and LCx PCI. 7. Essential hypertension 8. Type II DM 9. Hyperlipidemia 10. Hypothyroidism As noted above in the HPI patient does have very significant cardiac history with multiple injections and ablations with residual inducible VT on sotalol, mexiletine as well as metoprolol. Patient blood pressure appears to be okay and recommend to continue all 3 medications at the present point of time and recommended to keep potassium greater than 4 magnesium greater than 2.0 at all times. Continue telemetry monitoring. Paroxysmal atrial fibrillation with RVR: Patient does have a history of paroxysmal atrial fibrillation and is rate controlled on the above medications of metoprolol mexiletine as well as sotalol to keep the heart rate between 60 and 70 bpm and in sinus rhythm. EKG did not show the sinus rhythm. He is on Xarelto for anticoagulation which has been held because of the GI bleed and recommend to continue to hold for now but is hemoglobin is stable at 11.6. Recommended to discuss with the GI regarding the safe time to start up anticoagulation which they are recommending to start after 48 hours. Patient understand the risks and benefits of stopping anticoagulation at the present moment. Continue to monitor on telemetry Severe systolic congestive heart failure with an EF of around 35% previously s/p AICD about/[place]-patient denied any kind of recent shocks since the last visit. Patient overall looks euvolemic. Continue his home dose of oral Lasix. 2 g sodium diet, strict input output and daily weights. History of CAD status post PCI to proximal LCx as well as LAD.. Patient denies any chest pain or chest pressure at the present point of time recommend to continue aspirin 81 mg once daily and also high intensity statin along with a beta-anita. Check TSH A1c and lipid profile for further cardiac restratification. Denies any cardiac complaints including chest pressure. Essential hypertension: Patient blood pressure was slightly on the low side and mostly secondary to acute blood loss anemia with hemoglobin of 11.6 from 15. Blood pressure slightly on the lower side recommend to stop the nifedipine completely and okay to use lisinopril low-dose at 2.5 mg but continue on antiarrhythmic drugs and AV node blockers for now. Management of rest of the medical conditions as per primary team and other consultants. Thank you for the consult and allowing me to participate in the care of the patient. Cardiology will continue to follow. Raz Ny M.D. Interventional Cardiology
--- NOTE | 2024-12-29 14:15 | PD.RESDS ---
Planned Discharge Date 12/29/24 DS: Providers Provider Date of admission: 12/27/24 15:30 Primary care physician: Grey Bedoya MD Admitting Provider: Meek Alonso MD Attending Provider on Admission: Branden Smith DO Consults: 12/27/24 14:12 Consult to General Surgery Stat Comment: Consulting Provider: Colby Broderick 12/29/24 10:02 Consult to Cardiology Routine Comment: Consulting Provider: Raz Ny Attending Provider on DC: Amandeep Huerta MD Discharging Provider: Amandeep Huerta MD DS: Diagnosis Problem List Completed Was Problem List Reviewed/Reconciled?: Yes Hospital Course Hospital Course Hospital course: 54-year-old male with past medical history significant for essential hypertension, hypothyroidism, [id number]-[id number] diabetes mellitus type 2, chronic systolic congestive heart failure with reduced ejection fraction [35-40%] history of V. tach s/p ICD placement, atrial fibrillation s/p ablation 08/11/2024 at [facility] by EP Dr. Ashford on anticoagulation with Xarelto and rate control with mexiletine 150 Mg p.o. twice daily and sotalol 160 Mg p.o. twice daily presented with a chief complaint of lower GI bleed will have colonoscopy 2/2 with GI to provide post-procedure recommendations. With regards to patient's GI bleed with H&H was drawn Every 4 hourly. On admission Hb was 15.1 which subsequently down trended to 11.6 and remained stable at this time. GI, Dr. Broderick was consulted and colonoscopy was done findings include: Hemorrhoids on perianal exam. Few small mouth diverticula in sigmoid and descending colon with no evidence of diverticular bleeding. Polypectomy site and transverse colonic and anus visualized and to 11 mm status endoclips were placed. All patient's labs are now returning to baseline and patient is clinically stable and fit for discharge to home. Discharge diagnoses: 1. Lower GI bleed?resolved 2. Acute blood loss anemia?resolving 3. History of atrial fibrillation s/p ablation 4. History of V. tach s/p ICD 5. Chronic systolic and diastolic heart failure with reduced ejection fraction [35 to 40%] 6. CAD s/p stent LAD 7. HYPOTHYROIDISM 8. ESSENTIAL HYPERTENSION 9. [id number] DIABETES MELLITUS TYPE 2 10. HYPERLIPIDEMIA Discharge plan: ? Recommend to follow-up with fur nailer Dr. Broderick's instructions to start Xarelto on December 30 as prescribed. ? Recommend to follow-up with steward/stewardess wine Dr. Ny within 1 week of discharge from hospital. ? Please follow-up with fur nailer Dr. Broderick within 2 weeks of discharge from hospital. ? In case of worsening symptoms, please return to the emergency room. We are grateful to be able to participate in Mr. Proctor's care. We wish him the best. Plan of care discussed with Attending Dr. Sarah Huerta MD PGY 1 Senior resident attestation: Patient evaluated and examined at the bedside, plan of care discussed with rest of the team including my attending physician, except as noted. Quresh PGY2 Time Spent with Patient Time attestation: Total time spent providing and/or coordinating discharge services: Time spent: Greater than 30 minutes (36) Exam Vital Signs Temp Pulse Resp BP Pulse Ox O2 Del Method O2 Flow Rate 97.2 F 65 18 143/95 H 95 Room Air 3 12/29/24 11:45 12/29/24 12:00 12/29/24 11:45 12/29/24 11:45 12/29/24 11:45 12/29/24 07:54 12/28/24 17:38 Narrative Exam Constitutional Alert, oriented x 3 and comfortable. Middle-age man HEENT Vision grossly intact. Patent nares. Trachea midline Respiratory Chest normal on inspection and clear auscultation bilaterally Cardiovascular S1 and S2 audible, RRR. No murmurs carotid bruit. No gross JVD. Abdominal Soft and non tender to palpation in all quadrants. BS + Genitourinary No bladder tenderness, no flank pain. Normal to palpation Musculoskeletal Extremities tone within normal limits. No LE edema. Neurological CN II - XII grossly intact. Extremity motor and sensation grossly intact. Skin Warm, dry and intact. No apparent lesions. Psychiatric Patient has good affect, is cooperative Discharge Plan Plan Patient Disposition: HOME (Self Care) Disposition Comment: [place] Patient condition on transfer: Stable Care Plan Goals: Recommend to follow-up with fur nailer Dr. Broderick's instructions to start Xarelto on December 30 as prescribed. Recommend to follow-up with steward/stewardess wine Dr. Ny within 1 week of discharge from hospital. Please follow-up with fur nailer Dr. Broderick within 2 weeks of discharge from hospital. In case of worsening symptoms, please return to the emergency room. Prescriptions/Referrals Prescriptions/Med Rec: New aspirin [Ecotrin Low Strength] 81 mg Tablet,Delayed Release (Dr/Ec) 81 mg PO QDAY 30 Days Qty: 30 0RF Metamucil Fiber Singles 3.4 gram powder in packet 3.4 g PO TID Qty: 30 0RF Continued metoprolol tartrate 50 mg tablet 50 mg PO QDAY Mounjaro 15 mg/0.5 mL pen injector 15 mg subcut QWEEK allopurinol 300 mg Tablet 300 mg PO QDAY Xarelto 20 mg Tablet 20 mg PO HS loratadine 10 mg tablet 10 mg PO DAILY atorvastatin 80 mg tablet 80 mg PO QPM Qty: 30 0RF Linzess 145 mcg capsule 145 mcg PO QDAY sotalol 160 mg Tablet 160 mg PO BID levothyroxine 88 mcg Tablet 88 mcg PO QDAY mexiletine 150 mg Capsule 150 mg PO BID dapagliflozin propanediol [Farxiga] 10 mg Tablet 10 mg PO DAILY lisinopril 2.5 mg tablet 2.5 mg PO QDAY Qty: 30 0RF nifedipine 60 mg tablet extended release 24hr 60 mg PO QDAY Discontinued aspirin 325 mg tablet 325 mg PO DAILY loratadine 10 mg tablet,disintegrating 10 mg PO QDAY Referrals: Raz Ny MD [Physician] - Colby Broderick MD [Physician] - Grey Bedoya MD [Primary Care Provider] - Patient/Caregiver Discharge Instructions Other Discharge Activity Instructions:: Follow-up with your primary care provider within 1-2 weeks after discharge. Recommend to follow-up with fur nailer Dr. Broderick's instructions to start Xarelto on December 30 as prescribed. Recommend to follow-up with steward/stewardess wine Dr. Anant Blount within 1 week of discharge from hospital. Please follow-up with fur nailer Dr. Broderick within 2 weeks of discharge from hospital. In case of worsening symptoms, please return to the emergency room. Education Materials: Bleeding Gastrointestinal, Colonoscopy Print Language: Malay Activity Restrictions/Additional Instructions: PER , YOU MAY CONTINUE YOUR XARELTO ON Sunday PRESCRIBED. Stand Alone Forms: [facility] Award Info., Patient Portal Info Letter, Work/Release Restrictions Discharge Order Discharge Orders: Discharge (Routine); Ordered 12/29/24 Ordered By: Ishaan Haywood Quality Discharge Quality Measures VTE prophylaxis (SCDs) Attestestation MD Attestation I have discussed and was present for the essential components of the discharge history, physical examination, diagnosis, and discharge treatment plan with the resident. I agree with the patient's discharge care as documented by the resident and amended herein by me. Francis Smith DO. The patient understood all discharge instructions, all questions were answered satisfactorily. The patient was instructed to return to the Emergency Department is symptoms worsened or persisted. Although this document has been carefully reviewed, there may still be some phonetic and other typographical errors. These errors are purely grammatical due to imperfections in the software program and should not be construed in any way to compromise the substance of the patient's medical care during this visit.
--- NOTE | 2024-12-29 15:55 | PC.NURSE ---
Patient has discharged in the morning but needed to be seen first by Dr. Blount. Feed Mill Tender came in and talked to the patient around 14:00 PM.
== END 2024-12-29 15:42 | disposition home or self-care (01) ==
LOC: SERX 14:18 → SERHOLD 16:34 → S3NX 12-28 15:28 → SERHOLD 12-29 11:44
PROVIDERS: Nurse Practitioner Family; Specialist; Admitting Provider Internal Medicine; Emergency Provider Emergency Medicine; PCP Family Medicine; Visit Provider Student in an Organized Health Care Education/Training Program
PROC: 0DJD8ZZ Inspection of Lower Intestinal Tract, Via Natural or Artificial Opening Endoscopic (ICD-10-PCS; CPT 45378; principal; 2024-12-28 16:00)
DX: K57.31 Diverticulosis of large intestine without perforation or abscess with bleeding (principal); D62 Acute posthemorrhagic anemia; E03.9 Hypothyroidism, unspecified; E11.9 Type 2 diabetes mellitus without complications; E66.9 Obesity, unspecified; E78.5 Hyperlipidemia, unspecified; I11.0 Hypertensive heart disease with heart failure; I25.10 Atherosclerotic heart disease of native coronary artery without angina pectoris; I25.2 Old myocardial infarction; I47.20 Ventricular tachycardia, unspecified; I48.0 Paroxysmal atrial fibrillation; I49.01 Ventricular fibrillation; I50.42 Chronic combined systolic (congestive) and diastolic (congestive) heart failure; K21.9 Gastro-esophageal reflux disease without esophagitis; K64.9 Unspecified hemorrhoids; M10.9 Gout, unspecified; Z82.49 Family history of ischemic heart disease and other diseases of the circulatory system; Z95.5 Presence of coronary angioplasty implant and graft; Z95.810 Presence of automatic (implantable) cardiac defibrillator; Z01.810 Encounter for preprocedural cardiovascular examination; Z68.36 Body mass index [BMI] 36.0-36.9, adult
CPT/HCPCS: 45378; 36415; 74018; 74174; 80053; 80069; 82728; 83540; 83550; 83735; 84100; 84443; 85014; 85018; 85025; 85610; 85730; 93005; 96365; 96374; 99285; A4649; G0378; J0290; J1200; J1580; J2175; J2250; J2470; J3010; J3480; J7050; J7120; Q9967; A9270

== ENCOUNTER → 2024-12-31 | Outpatient (CLI) | payer OTHER, MEDICAID, SELFPAY ==
[2024-12-31 11:28] LABS: Basophils % (Auto) 0 % (0-2.5); Eosinophils # (Auto) 0.1 Thou/mm3 (0.0-0.5); Eosinophils % (Auto) 2 % (0-10); Hematocrit 39.5 % (41.0-53.0); Hemoglobin 12.8 g/dL (13.5-16.0); Immature Granulocytes % (Auto) 0 % (0-0); Immature Granulocytes Auto 0.01 Thou/mm3 (0.00-0.00); Lymphocytes # (Auto) 1.6 Thou/mm3 (1.0-4.8); Lymphocytes % (Auto) 24 % (10-50); Mean Corpuscular HGB Conc 32.4 g/dl (31.0-37.0); Mean Corpuscular Hemoglobin 26.9 pg (25.0-35.0); Mean Corpuscular Volume 83 fL (80-100); Monocytes # (Auto) 0.6 Thou/mm3 (0.0-0.8); Monocytes % (Auto) 9 % (0-12); Neutrophils # (Auto) 4.3 Thou/mm3 (1.8-7.7); Neutrophils % (Auto) 65 % (37-80); Nucleated Red Blood Cell % 0 /100 WBC (0); Platelet Count 343 Thou/mm3 (140-440); RDW Standard Deviation 47.3 fL (35.1-43.9); Red Blood Count 4.76 Miln/mm3 (4.50-5.90); White Blood Count 6.6 Thou/mm3 (3.8-10.6)
[2024-12-31 11:41] LABS: Albumin, Serum 4.3 gm/dL (3.5-5.0); Anion Gap 8 (7-16); BUN/Creatinine Ratio 8 Ratio (12-20); Blood Urea Nitrogen 9 mg/dL (9-23); Calcium 9.2 mg/dL (8.3-10.6); Calcium (Corrected) 9.2 mg/dL (8.5-10.1); Carbon Dioxide 27.4 mMol/L (20.0-31.0); Chloride 106 mMol/L (98-107); Creatinine (Component) 1.2 mg/dL (0.6-1.3); Glucose 101 mg/dL (74-106); Osmolality,Calculated 279 (275-295); Phosphorous 3.6 mg/dL (2.4-5.1); Potassium 4.3 mMol/L (3.4-5.1); Sodium 141 mMol/L (136-145); eGFR > 60 See Note
== END | disposition home or self-care (01) ==
PROVIDERS: PCP Family Medicine; Referring Provider Family Medicine; Visit Provider Family Medicine
DX: I48.11 Longstanding persistent atrial fibrillation (principal)
CPT/HCPCS: 36415; 80069; 85025

== ENCOUNTER → 2025-01-19 | Outpatient (CLI) | payer OTHER, MEDICAID, SELFPAY ==
[2025-01-19 08:32] LABS: Basophils % (Auto) 1 % (0-2.5); Eosinophils # (Auto) 0.2 Thou/mm3 (0.0-0.5); Eosinophils % (Auto) 3 % (0-10); Hematocrit 42.7 % (41.0-53.0); Hemoglobin 13.6 g/dL (13.5-16.0); Immature Granulocytes % (Auto) 0 % (0-0); Immature Granulocytes Auto 0.01 Thou/mm3 (0.00-0.00); Lymphocytes # (Auto) 1.7 Thou/mm3 (1.0-4.8); Lymphocytes % (Auto) 24 % (10-50); Mean Corpuscular HGB Conc 31.9 g/dl (31.0-37.0); Mean Corpuscular Hemoglobin 26.1 pg (25.0-35.0); Mean Corpuscular Volume 82 fL (80-100); Monocytes # (Auto) 0.5 Thou/mm3 (0.0-0.8); Monocytes % (Auto) 7 % (0-12); Neutrophils # (Auto) 4.7 Thou/mm3 (1.8-7.7); Neutrophils % (Auto) 65 % (37-80); Nucleated Red Blood Cell % 0 /100 WBC (0); Platelet Count 399 Thou/mm3 (140-440); RDW Standard Deviation 47.2 fL (35.1-43.9); Red Blood Count 5.22 Miln/mm3 (4.50-5.90); White Blood Count 7.2 Thou/mm3 (3.8-10.6)
[2025-01-19 09:08] LABS: Alanine Aminotransferase 13 U/L (10-49); Albumin, Serum 4.4 gm/dL (3.5-5.0); Alkaline Phosphatase 127 U/L (46-116); Anion Gap 8 (7-16); Aspartate Amino Transferase 12 U/L (0-34); BUN/Creatinine Ratio 16 Ratio (12-20); Bilirubin,Total 0.4 mg/dL (0.3-1.2); Blood Urea Nitrogen 16 mg/dL (9-23); Calcium 9.5 mg/dL (8.3-10.6); Calcium (Corrected) 9.5 mg/dL (8.5-10.1); Carbon Dioxide 28.1 mMol/L (20.0-31.0); Chloride 105 mMol/L (98-107); Globulin 2.2 gm/dL (2.3-3.5); Glucose 131 mg/dL (74-106); Osmolality,Calculated 284 (275-295); Potassium 4.9 mMol/L (3.4-5.1); Sodium 141 mMol/L (136-145); Total Protein 6.6 gm/dL (5.7-8.2); eGFR > 60 See Note
== END | disposition home or self-care (01) ==
LOC: COPL 07:34
PROVIDERS: PCP Family Medicine; Referring Provider Family Medicine; Visit Provider Internal Medicine Cardiovascular Disease
DX: I95.9 Hypotension, unspecified (principal); K62.5 Hemorrhage of anus and rectum
CPT/HCPCS: 36415; 80053; 85025

== ENCOUNTER 2025-02-13 08:35 | Outpatient (AMB) | payer OTHER, MEDICAID, SELFPAY ==
--- NOTE | 2025-02-13 09:36 | PD.ORTHCLVIS ---
Vital signs 02/13/25 09:37 Height 1.75 m Height Method Stated Weight 118.161 kg Weight Measurement Method Standing Scale BMI 38.5 BP 142/84 H Blood Pressure Source Automatic Cuff Blood Pressure Location Left Upper Arm Position Sitting Respiration 19 Pulse 61 Pulse Source Monitor Temp 97.6 F Temp Source Temporal Artery Scan Pulse Oximetry (%) 97 Oxygen Delivery Method Room Air Med/Allergies Allergies & Medications Allergies No Known Allergies Allergy (Verified 02/13/25 09:53) Medication Reconciliation allopurinol 300 mg tablet 300 mg PO QDAY 07/17/21 [History Confirmed 02/13/25] rivaroxaban 20 mg tablet (Xarelto) 20 mg PO HS 07/17/21 [History Confirmed 02/13/25] atorvastatin 80 mg tablet 80 mg PO QPM #30 tabs 11/17/22 [Rx Confirmed 02/13/25] tirzepatide 15 mg/0.5 mL subcutaneous pen injector (Mounjaro) 15 mg subcut QWEEK 05/20/24 [History Confirmed 02/13/25] linaclotide 145 mcg capsule (Linzess) 145 mcg PO QDAY 08/10/24 [History Confirmed 02/13/25] dapagliflozin propanediol 10 mg tablet (Farxiga) 10 mg PO DAILY 09/02/24 [History Confirmed 02/13/25] levothyroxine 88 mcg tablet 88 mcg PO QDAY 09/02/24 [History Confirmed 02/13/25] mexiletine 150 mg capsule 150 mg PO BID 09/02/24 [History Confirmed 02/13/25] sotalol 160 mg tablet 160 mg PO BID 09/02/24 [History Confirmed 02/13/25] lisinopril 2.5 mg tablet 2.5 mg PO QDAY #30 tabs 09/03/24 [Rx Confirmed 02/13/25] metoprolol tartrate 50 mg tablet 50 mg PO QDAY 11/14/24 [History Confirmed 02/13/25] nifedipine 60 mg tablet,extended release 24 hr 60 mg PO QDAY 12/19/24 [History Confirmed 02/13/25] loratadine 10 mg tablet 10 mg PO DAILY 12/27/24 [History Confirmed 02/13/25] psyllium husk (aspartame) 3.4 gram oral powder packet (Metamucil Fiber Singles) 3.4 g PO TID #30 ea 12/29/24 [Rx Confirmed 02/13/25] Exam Exam Patient is in no acute distress and is cooperative with the examination today. Breathing is nonlabored. In no respiratory distress. Bilateral extremities were evaluated and demonstrates sensation intact to light touch. Palpable pedal pulses are present. No significant edema is present. Bilateral hips were examined. The patient has no pain with log roll of the hips. Internal rotation to 30 degrees and external rotation to 30 degrees is painless. Negative FADIR. The left knee was examined. The left knee is in varus alignment. Range of motion from 0-115 degrees. Knee is stable to varus and valgus as well as AP translation with <5mm. Patient has a negative McMurrays. There is no pain with patellofemoral compression and no crepitus noted. The knee is tender to palpation medially. The right knee was also examined. The right knee is in varus alignment. Range of motion from 0-120 degrees. Knee is stable to varus and valgus as well as AP translation with <5mm. Patient has a negative McMurrays. There is no pain with patellofemoral compression and no crepitus noted. The knee is tender to palpation medially. X-rays from [facility] dated March 2023 reviewed by me today. This demonstrates complete obliteration of medial joint space. These are nonweightbearing. There is varus deformity Assessment and Plan Problem List (1) Unilateral primary osteoarthritis, right knee: Status: Acute Plan: Patient is a 53-year-old male with bilateral knee osteoarthritis worse on the right. We discussed nonoperative and operative options. He is meeting attempts at weight loss. He would like bilateral knee injections today which do not last very long for him. He has had some cardiac and GI issues recently including bleeding. This will need to resolve in order for him to get surgery. Recommend knee cortisone injections as patient would like to proceed with conservative treatment at this time. The risks and benefits of the procedure were reviewed with the patient and patient gave verbal consent to continue with the procedure. Procedure: performed by Dr. Kumari Using sterile technique the Bilateral knees were thoroughly prepped with alcohol, and approximately 1 cc of Kenalog 40 mg/mL and 4 cc of 1% lidocaine was injected into each knee without resistance into the medial tibial femoral joint space. The patient tolerated the procedure. We will start with surgery on the right knee and this is hurting him more. We will wait 3 months from the injection to do surgery at the earliest (2) Diabetes: Status: Acute Office Procedures GNS Level of Care Nursing/Assessment Patient Status: Established Patient Nursing Assessment/Reassesment: Medication Reconciliation, Update PMH in EMR and Vital Signs Coordination of Care: Complex Care and Chronic Disease 1-5, Education Complex Pt/Fam, Consent,records obtained, informed consent, Results/Orders obtained and Staff clarify orders Established Patient Charge Established Patient Point Assignment: 95 Established Patient Point Charge: EP Level 3 (80-115) Surgical Proc/IM SQ injection Major Surgical Procedure: Yes (BILATERAL KNEE INJECTIONS) Medication Given Medication Given Medication Given: Yes Documented Dose Given: 8 Route: Infiitration Medication Given Medication Given Medication Given: Yes Documented Dose Given: 2 Route: Infiitration Office Meds Xylocaine 10 mg/mL (1 %) injection solution Performing Provider: Franklin Kumari MD Performing Location: [facility] Administered by: Franklin Kumari MD on 02/13/25 10:00 Dose Route Admin Location Dispensed Lot Number Expiration Date [facility] Baseball Winder 40 mL Infiltration 40 mL [id number] 06/24/27 87781-327-00 [facility] triamcinolone acetonide 40 mg/mL suspension for injection Performing Provider: Franklin Kumari MD Performing Location: [facility] Administered by: Franklin Kumari MD on 02/13/25 10:00 Dose Route Admin Location Dispensed Lot Number Expiration Date [facility] Baseball Winder 80 mg intra-articular 2 mL [id number] 09/24/26 4294-0945-23 TEVA PARENTERAL MA Intake Visit Data Collection New Patient or Established: Established Patient (seen at [facility] within 3 years) Reason for Visit:: REQ BILATERAL KNEE INJECTION Seen by Clinical Staff ONLY (RN/MA): No 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 Required: No PCP or OBGYN visit in last 3 months: Yes Hx Now: No Do You Feel Safe at Home: Yes Authorities Contacted: N/A Questionairres Past Medical History Past Medical History Have you ever been diagnosed with any of the following: Neurological Problems Cerebrovascular Accident (CVA): Yes Seizures: No Cardiology Problems Myocardial Infarction: Yes Cardiac Arrhythmia: Yes Atrial Fibrillation: Yes Hypercholesterolemia: Yes Congestive Heart Failure: Yes Edema: No Cellulitis: No Hypertension: Yes Varicose Veins: No Respiratory Problems Chronic Obstructive Pulmonary Disease (COPD): No Asthma: No Pulmonary Fibrosis: No Tuberculosis: No Sleep Apnea: No Stomache/Intestinal Problems Hepatitis: No Gastroesophageal Reflux Disease: Yes Obesity: Yes Genital/Urinary Problems Renal Disease: No Musculoskeletal Problems Arthritis: Yes Gout: Yes Endocrine Problems Diabetes Mellitus Type 1: No Diabetes Mellitus Type 2: Yes (kassi) Hypothyroidism: Yes Blood Problems Sickle Cell Disease: No Other Problems Hospitalization: No Shingles: No Falls: No Blood Transfusions: No Anesthesia Reactions: No Chemotherapy: No Radiation Therapy: No MRSA: No Chicken Pox: No Measles: No Mumps: No Cancer: No Surgical History Pacemaker: Yes Subjective Visit Visit for: follow up visit, knee and injections Immunization / Flu Flu Vaccine in the Last 12 Months: No Flu Vaccine Exclusion Criteria: No Exclusion Criteria History of Present Illness Chief complaint: F/U KNEE INJECTIONS Ar is a pleasant 54-year-old male with bilateral knee pain and bilateral knee arthritis. I been seeing him for quite a while. He does have severe heart issues that are ongoing right now. He has recent ablations and reports that it is currently well-controlled. He would like to get knee injections as he cannot get surgery at this time. Pain Pain level (0-10): 8 Pain duration: WITH COLDER WEATHER Pain location: inside (medial), outside (lateral) and anterior Pain quality: sharp, dull and aching Pain timing: night, increases with activity, stairs and other (specify) Associated signs & symptoms: none Ambulatory data Ambulatory device: none Treatments Improvement with previous injections: No Improvement with PT: No Improvement with NSAIDS: n/a Review of Systems Review of Systems: All systems negative unless otherwise noted in HPI.
[2025-02-13 09:37] VITALS: BP 142/84; PULSE 61; RESP 19; TEMP 36.4; O2SAT 97; BMI 38.5
== END 2025-02-13 10:13 | disposition home or self-care (01) ==
LOC: HODSRG 08:35
PROVIDERS: PCP Family Medicine; Referring Provider Family Medicine; Supervising Provider Orthopaedic Surgery Adult Reconstructive Orthopaedic Surgery; Visit Provider Orthopaedic Surgery Adult Reconstructive Orthopaedic Surgery
DX: M17.0 Bilateral primary osteoarthritis of knee (principal); E11.9 Type 2 diabetes mellitus without complications; I25.2 Old myocardial infarction; I48.91 Unspecified atrial fibrillation; E78.00 Pure hypercholesterolemia, unspecified; I11.0 Hypertensive heart disease with heart failure; I50.9 Heart failure, unspecified; Z86.73 Personal history of transient ischemic attack (TIA), and cerebral infarction without residual deficits; E03.9 Hypothyroidism, unspecified; E66.9 Obesity, unspecified; Z68.38 Body mass index [BMI] 38.0-38.9, adult; Z95.0 Presence of cardiac pacemaker
CPT/HCPCS: 20610; 99213; J3301; J3490; G0463

== ENCOUNTER → 2025-03-03 | Outpatient (CLI) | payer OTHER, MEDICAID, SELFPAY ==
[2025-03-03 10:06] LABS: Alanine Aminotransferase 14 U/L (10-49); Albumin, Serum 4.3 gm/dL (3.5-5.0); Alkaline Phosphatase 127 U/L (46-116); Anion Gap 8 (7-16); Aspartate Amino Transferase 15 U/L (0-34); BUN/Creatinine Ratio 14 Ratio (12-20); Bilirubin,Total 0.6 mg/dL (0.3-1.2); Blood Urea Nitrogen 17 mg/dL (9-23); Calcium 9.6 mg/dL (8.3-10.6); Calcium (Corrected) 9.6 mg/dL (8.5-10.1); Carbon Dioxide 28.5 mMol/L (20.0-31.0); Chloride 106 mMol/L (98-107); Creatinine (Component) 1.2 mg/dL (0.6-1.3); Globulin 2.2 gm/dL (2.3-3.5); Glucose 110 mg/dL (74-106); Osmolality,Calculated 285 (275-295); Sodium 142 mMol/L (136-145); Total Protein 6.5 gm/dL (5.7-8.2); eGFR > 60 See Note
[2025-03-03 10:09] LABS: Glucose Estimated Average 111 mg/dL (80-131); Hemoglobin A1C 5.5 % Hgb (4.8-6.0)
== END | disposition home or self-care (01) ==
LOC: COPL 08:11
PROVIDERS: PCP Family Medicine; Referring Provider Family Medicine; Visit Provider Family Medicine
DX: E11.65 Type 2 diabetes mellitus with hyperglycemia (principal)
CPT/HCPCS: 36415; 80053; 83036

== ENCOUNTER → 2025-03-04 | Outpatient (CLI) | payer OTHER, MEDICAID, SELFPAY | END | disposition home or self-care (01) | PROVIDERS: PCP Family Medicine; Referring Provider Family Medicine; Visit Provider Family Medicine | DX: E11.65 Type 2 diabetes mellitus with hyperglycemia (principal) ==

== ENCOUNTER 2025-05-05 07:57 | Outpatient (AMB) | payer OTHER, MEDICAID, SELFPAY ==
--- NOTE | 2025-05-05 08:08 | ORTHONT_ITS ---
Vital signs 05/05/25 08:09 Height 1.75 m Height Method Stated Weight 117.962 kg Weight Measurement Method Standing Scale BMI 38.5 BP 132/86 H Blood Pressure Source Automatic Cuff Blood Pressure Location Left Upper Arm Position Sitting Respiration 18 Pulse 65 Pulse Source Monitor Temp 98.1 F Temp Source Temporal Artery Scan Pulse Oximetry (%) 97 Oxygen Delivery Method Room Air Med/Allergies Allergies & Medications Allergies No Known Allergies Allergy (Verified 05/05/25 08:09) Medication Reconciliation allopurinol 300 mg tablet 300 mg PO QDAY 07/17/21 [History Confirmed 05/05/25] rivaroxaban 20 mg tablet (Xarelto) 20 mg PO HS 07/17/21 [History Confirmed 05/05/25] atorvastatin 80 mg tablet 80 mg PO QPM #30 tabs 11/17/22 [Rx Confirmed 05/05/25] tirzepatide 15 mg/0.5 mL subcutaneous pen injector (Mounjaro) 15 mg subcut QWEEK 05/20/24 [History Confirmed 05/05/25] linaclotide 145 mcg capsule (Linzess) 145 mcg PO QDAY 08/10/24 [History Confirmed 05/05/25] dapagliflozin propanediol 10 mg tablet (Farxiga) 10 mg PO DAILY 09/02/24 [History Confirmed 05/05/25] levothyroxine 88 mcg tablet 88 mcg PO QDAY 09/02/24 [History Confirmed 05/05/25] mexiletine 150 mg capsule 150 mg PO BID 09/02/24 [History Confirmed 05/05/25] sotalol 160 mg tablet 160 mg PO BID 09/02/24 [History Confirmed 05/05/25] lisinopril 2.5 mg tablet 2.5 mg PO QDAY #30 tabs 09/03/24 [Rx Confirmed 05/05/25] metoprolol tartrate 50 mg tablet 50 mg PO QDAY 11/14/24 [History Confirmed 05/05/25] nifedipine 60 mg tablet,extended release 24 hr 60 mg PO QDAY 12/19/24 [History Confirmed 05/05/25] loratadine 10 mg tablet 10 mg PO DAILY 12/27/24 [History Confirmed 05/05/25] psyllium husk 3.4 gram oral powder packet (Metamucil Fiber (aspartame)) 3.4 g PO TID #30 ea 12/29/24 [Rx Confirmed 05/05/25] Exam Exam Patient is in no acute distress and is cooperative with the examination today. Breathing is nonlabored. In no respiratory distress. Bilateral extremities were evaluated and demonstrates sensation intact to light touch. Palpable pedal pulses are present. No significant edema is present. Bilateral hips were examined. The patient has no pain with log roll of the hips. Internal rotation to 30 degrees and external rotation to 30 degrees is painless. Negative FADIR. The left knee was examined. The left knee is in varus alignment. Range of motion from 0-115 degrees. Knee is stable to varus and valgus as well as AP translation with <5mm. Patient has a negative McMurrays. There is no pain with patellofemoral compression and no crepitus noted. The knee is tender to palpation medially. The right knee was also examined. The right knee is in varus alignment. Range of motion from 0-120 degrees. Knee is stable to varus and valgus as well as AP darling slation with <5mm. Patient has a negative McMurrays. There is no pain with patellofemoral compression and no crepitus noted. The knee is tender to palpation medially. X-rays from [facility] dated March 2023 reviewed by me today. This demonstrates complete obliteration of medial joint space. These are nonweightbearing. There is varus deformity Assessment and Plan Problem List (1) Unilateral primary osteoarthritis, right knee: Status: Acute Plan: Patient is a 53-year-old male with bilateral knee osteoarthritis worse on the right. We discussed nonoperative and operative options. He is meeting attempts at weight loss. He would like bilateral knee injections today which do not last very long for him. He has had some cardiac and GI issues recently including bleeding. This will need to resolve in order for him to get surgery. Recommend knee cortisone injections as patient would like to proceed with conservative treatment at this time. The risks and benefits of the procedure were reviewed with the patient and patient gave verbal consent to continue with the procedure. Procedure: performed by Dr. Kumari Using sterile technique the Bilateral knees were thoroughly prepped with alcohol, and approximately 1 cc of Kenalog 40 mg/mL and 4 cc of 1% lidocaine was injected into each knee without resistance into the medial tibial femoral joint space. The patient tolerated the procedure. (2) Diabetes: Status: Acute Office Procedures GNS Level of Care Nursing/Assessment Patient Status: Established Patient Nursing Assessment/Reassesment: Medication Reconciliation, Update PMH in EMR and Vital Signs Coordination of Care: Complex Care and Chronic Disease 1-5, Education Complex Pt/Fam, Consent,records obtained, informed consent, Results/Orders obtained and Staff clarify orders Established Patient Charge Established Patient Point Assignment: 95 Established Patient Point Charge: EP Level 3 (80-115) Surgical Proc/IM SQ injection Major Surgical Procedure: Yes (BILATERAL KNEE INJECTION) Medication Given Medication Given Medication Given: Yes Documented Dose Given: 8 Route: Infiitration Medication Given Medication Given Medication Given: Yes Documented Dose Given: 2 Route: Infiitration Office Meds Xylocaine 10 mg/mL (1 %) injection solution Performing Provider: Franklin Kumari MD Performing Location: [facility] Administered by: Franklin Kumari MD on 05/05/25 08:32 Dose Route Admin Location Dispensed Lot Number Expiration Date [facility] Programmer Or Analyst 40 mL Infiltration 40 mL [id number] 03/25/28 60872-759-48 [facility] triamcinolone acetonide 40 mg/mL suspension for injection Performing Provider: Franklin Kumari MD Performing Location: [facility] Administered by: Franklin Kumari MD on 05/05/25 08:32 Dose Route Admin Location Dispensed Lot Number Expiration Date [facility] Program[employer]st 80 mg intra-articular 2 mL [id number] 06/24/26 77713-286-26 TJ GARCIA MA Intake Visit Data Collection New Patient or Established: Established Patient (seen at [facility] within 3 years) Reason for Visit:: 3 MTH F/U/ BL KNEE INJECTION Seen by Clinical Staff ONLY (RN/MA): No PCP or OBGYN visit in last 3 months: Yes Hx Now: No Do You Feel Safe at Home: Yes Authorities Contacted: N/A Questionairres Past Medical History Past Medical History Have you ever been diagnosed with any of the following: Neurological Problems Cerebrovascular Accident (CVA): Yes Seizures: No Cardiology Problems Myocardial Infarction: Yes Cardiac Arrhythmia: Yes Atrial Fibrillation: Yes Hypercholesterolemia: Yes Congestive Heart Failure: Yes Edema: No Cellulitis: No Hypertension: Yes Varicose Veins: No Respiratory Problems Chronic Obstructive Pulmonary Disease (COPD): No Asthma: No Pulmonary Fibrosis: No Tuberculosis: No Sleep Apnea: No Smoking: No Smoking Exposure: No Stomache/Intestinal Problems Hepatitis: No Gastroesophageal Reflux Disease: Yes Obesity: Yes Genital/Urinary Problems Renal Disease: No Musculoskeletal Problems Arthritis: Yes Gout: Yes Endocrine Problems Diabetes Mellitus Type 1: No Diabetes Mellitus Type 2: Yes (kassi) Hypothyroidism: Yes Blood Problems Sickle Cell Disease: No Other Problems Hospitalization: No Shingles: No Falls: No Blood Transfusions: No Anesthesia Reactions: No Chemotherapy: No Radiation Therapy: No MRSA: No Chicken Pox: No Measles: No Mumps: No Cancer: No Surgical History Pacemaker: Yes Subjective Visit Visit for: follow up visit, knee and injections Immunization / Flu Flu Vaccine in the Last 12 Months: No Flu Vaccine Exclusion Criteria: No Exclusion Criteria History of Present Illness Chief complaint: F/U KNEE INJECTIONS Ar is a pleasant 54-year-old male with bilateral knee pain and bilateral knee arthritis. I been seeing him for quite a while. He does have severe heart issues that are ongoing right now. He has recent ablations and reports that it is currently well-controlled. He would like to get knee injections as he cannot get surgery at this time. He is also getting a cardiac workup at this time. Pain Pain level (0-10): 7 Pain duration: COMES AND GOES Pain location: inside (medial) and anterior Pain quality: dull and aching Pain timing: increases with activity Associated signs & symptoms: none Ambulatory data Ambulatory device: none Treatments Number of previous injections: 2 Improvement with previous injections: Yes Improvement with PT: No Improvement with NSAIDS: no Review of Systems Review of Systems: All systems negative unless otherwise noted in HPI.
[2025-05-05 08:09] VITALS: BP 132/86; PULSE 65; RESP 18; TEMP 36.7; O2SAT 97; BMI 38.5
== END 2025-05-05 08:25 | disposition home or self-care (01) ==
PROVIDERS: PCP Family Medicine; Referring Provider Family Medicine; Supervising Provider Orthopaedic Surgery Adult Reconstructive Orthopaedic Surgery; Visit Provider Orthopaedic Surgery Adult Reconstructive Orthopaedic Surgery
DX: M17.0 Bilateral primary osteoarthritis of knee (principal); E11.9 Type 2 diabetes mellitus without complications; M25.562 Pain in left knee; M25.561 Pain in right knee; I11.0 Hypertensive heart disease with heart failure; I50.9 Heart failure, unspecified; E78.00 Pure hypercholesterolemia, unspecified; I25.2 Old myocardial infarction; I48.91 Unspecified atrial fibrillation; K21.9 Gastro-esophageal reflux disease without esophagitis; E03.9 Hypothyroidism, unspecified
CPT/HCPCS: 20610; 99213; J3301; J3490; G0463

== ENCOUNTER → 2025-05-05 | Outpatient (CLI) | payer OTHER, SELFPAY ==
[2025-05-05 10:47] LABS: Basophils # (Auto) 0.1 Thou/mm3 (0.0-0.2); Basophils % (Auto) 1 % (0-2.5); Eosinophils # (Auto) 0.2 Thou/mm3 (0.0-0.5); Eosinophils % (Auto) 4 % (0-10); Hematocrit 49.9 % (41.0-53.0); Hemoglobin 16.7 g/dL (13.5-16.0); Immature Granulocytes % (Auto) 0 % (0-0); Immature Granulocytes Auto 0.02 Thou/mm3 (0.00-0.00); Lymphocytes # (Auto) 1.5 Thou/mm3 (1.0-4.8); Lymphocytes % (Auto) 25 % (10-50); Mean Corpuscular HGB Conc 33.5 g/dl (31.0-37.0); Mean Corpuscular Hemoglobin 27.3 pg (25.0-35.0); Mean Corpuscular Volume 82 fL (80-100); Monocytes # (Auto) 0.5 Thou/mm3 (0.0-0.8); Monocytes % (Auto) 7 % (0-12); Neutrophils # (Auto) 3.9 Thou/mm3 (1.8-7.7); Neutrophils % (Auto) 63 % (37-80); Nucleated Red Blood Cell % 0 /100 WBC (0); Platelet Count 323 Thou/mm3 (140-440); RDW Standard Deviation 47.8 fL (35.1-43.9); Red Blood Count 6.11 Miln/mm3 (4.50-5.90); White Blood Count 6.2 Thou/mm3 (3.8-10.6)
[2025-05-05 10:57] LABS: Glucose Estimated Average 126 mg/dL (80-131)
[2025-05-05 11:00] LABS: B-Type Natriuretic Peptide 58 pg/mL (0-100)
[2025-05-05 11:08] LABS: Alanine Aminotransferase 14 U/L (10-49); Albumin, Serum 4.6 gm/dL (3.5-5.0); Albumin/Globulin Ratio 1.9 (1.2-2.2); Alkaline Phosphatase 128 U/L (46-116); Anion Gap 10 (7-16); BUN/Creatinine Ratio 12 Ratio (12-20); Bilirubin,Total 0.6 mg/dL (0.3-1.2); Blood Urea Nitrogen 16 mg/dL (9-23); Calcium 9.5 mg/dL (8.3-10.6); Calcium (Corrected) 9.5 mg/dL (8.5-10.1); Carbon Dioxide 26.8 mMol/L (20.0-31.0); Cardiac Risk Estimate 3.5 RATIO (4.0-6.7); Chloride 108 mMol/L (98-107); Cholesterol 91 mg/dL (132-200); Creatinine (Component) 1.3 mg/dL (0.6-1.3); Free T4 (Free Thyroxine) 1.33 ng/dL (0.89-1.76); Globulin 2.4 gm/dL (2.3-3.5); Glucose 141 mg/dL (74-106); HDL Cholesterol 26 mg/dL (40-60); LDL Cholesterol,Calculated 22 mg/dL (0-130); Magnesium 2.3 mg/dL (1.6-2.6); Osmolality,Calculated 291 (275-295); Potassium 4.3 mMol/L (3.4-5.1); Sodium 145 mMol/L (136-145); Thyroid Stimulating Hormone 1.25 uIU/mL (0.55-4.78); Triglycerides 216 mg/dL (30-150); eGFR > 60 See Note
== END | disposition home or self-care (01) ==
LOC: COPL 09:27
PROVIDERS: PCP Family Medicine; Referring Provider Internal Medicine Cardiovascular Disease; Visit Provider Internal Medicine Cardiovascular Disease
DX: E78.5 Hyperlipidemia, unspecified (principal); I48.0 Paroxysmal atrial fibrillation; I25.10 Atherosclerotic heart disease of native coronary artery without angina pectoris; Z86.79 Personal history of other diseases of the circulatory system
CPT/HCPCS: 36415; 80053; 80061; 83036; 83735; 83880; 84439; 84443; 85025

== ENCOUNTER 2025-08-06 07:55 | Outpatient (AMB) | payer OTHER, SELFPAY ==
--- NOTE | 2025-08-06 08:12 | PD.ORTHCLVIS ---
Vital signs 08/06/25 08:13 Height 1.75 m Height Method Stated Weight 117.055 kg Weight Measurement Method Standing Scale BMI 38.2 BP 134/87 H Blood Pressure Source Automatic Cuff Blood Pressure Location Left Upper Arm Position Sitting Respiration 19 Pulse 60 Pulse Source Monitor Temp 98.0 F Temp Source Temporal Artery Scan Pulse Oximetry (%) 98 Oxygen Delivery Method Room Air Med/Allergies Allergies & Medications Allergies No Known Allergies Allergy (Verified 08/06/25 08:14) Medication Reconciliation allopurinol 300 mg tablet 300 mg PO QDAY 07/17/21 [History Confirmed 08/06/25] rivaroxaban 20 mg tablet (Xarelto) 20 mg PO HS 07/17/21 [History Confirmed 08/06/25] atorvastatin 80 mg tablet 80 mg PO QPM #30 tabs 11/17/22 [Rx Confirmed 08/06/25] tirzepatide 15 mg/0.5 mL subcutaneous pen injector (Mounjaro) 15 mg subcut QWEEK 05/20/24 [History Confirmed 08/06/25] linaclotide 145 mcg capsule (Linzess) 145 mcg PO QDAY 08/10/24 [History Confirmed 08/06/25] dapagliflozin propanediol 10 mg tablet (Farxiga) 10 mg PO DAILY 09/02/24 [History Confirmed 08/06/25] levothyroxine 88 mcg tablet 88 mcg PO QDAY 09/02/24 [History Confirmed 08/06/25] mexiletine 150 mg capsule 150 mg PO BID 09/02/24 [History Confirmed 08/06/25] sotalol 160 mg tablet 160 mg PO BID 09/02/24 [History Confirmed 08/06/25] lisinopril 2.5 mg tablet 2.5 mg PO QDAY #30 tabs 09/03/24 [Rx Confirmed 08/06/25] metoprolol tartrate 50 mg tablet 50 mg PO QDAY 11/14/24 [History Confirmed 08/06/25] nifedipine 60 mg tablet,extended release 24 hr 60 mg PO QDAY 12/19/24 [History Confirmed 08/06/25] loratadine 10 mg tablet 10 mg PO DAILY 12/27/24 [History Confirmed 08/06/25] psyllium husk 3.4 gram oral powder packet (Metamucil Fiber (aspartame)) 3.4 g PO TID #30 ea 12/29/24 [Rx Confirmed 08/06/25] Exam Exam Patient is in no acute distress and is cooperative with the examination today. Breathing is nonlabored. In no respiratory distress. Bilateral extremities were evaluated and demonstrates sensation intact to light touch. Palpable pedal pulses are present. No significant edema is present. Bilateral hips were examined. The patient has no pain with log roll of the hips. Internal rotation to 30 degrees and external rotation to 30 degrees is painless. Negative FADIR. The left knee was examined. The left knee is in varus alignment. Range of motion from 0-115 degrees. Knee is stable to varus and valgus as well as AP translation with <5mm. Patient has a negative McMurrays. There is no pain with patellofemoral compression and no crepitus noted. The knee is tender to palpation medially. The right knee was also examined. The right knee is in varus alignment. Range of motion from 0-120 degrees. Knee is stable to varus and valgus as well as AP translation with <5mm. Patient has a negative McMurrays. There is no pain with patellofemoral compression and no crepitus noted. The knee is tender to palpation medially. X-rays from [facility] dated March 2023 reviewed by me today. This demonstrates complete obliteration of medial joint space. These are nonweightbearing. There is varus deformity Assessment and Plan Problem List (1) Unilateral primary osteoarthritis, right knee: Status: Acute Plan: Patient is a 53-year-old male with bilateral knee osteoarthritis worse on the right. We discussed nonoperative and operative options. He has lost 70 pounds and is doing well. He would like bilateral knee injections today which do not last very long for him. Recommend knee cortisone injection as patient would like to proceed with conservative treatment at this time. The risks and benefits of the procedure were reviewed with the patient and patient gave verbal consent to continue with the procedure. Procedure: performed by Dr. Kumari Using sterile technique the left knee was thoroughly prepped with alcohol, and approximately 1 cc of Depo-Medrol 80mg/mL and 4 cc of 0.2% ropivacaine was injected without resistance into the medial tibial femoral joint space. The patient tolerated the procedure. Recommend knee cortisone injection as patient would like to proceed with conservative treatment at this time. The risks and benefits of the procedure were reviewed with the patient and patient gave verbal consent to continue with the procedure. Procedure: performed by Dr. Kumari Using sterile technique the Right knee was thoroughly prepped with alcohol, and approximately 1 cc of Depo-Medrol 80mg/mL and 4 cc of 0.2% ropivacaine was injected without resistance into the medial tibial femoral joint space. The patient tolerated the procedure. (2) Diabetes: Status: Acute Office Procedures GNS Level of Care Nursing/Assessment Patient Status: Established Patient Nursing Assessment/Reassesment: Medication Reconciliation, Update PMH in EMR and Vital Signs Coordination of Care: Complex Care and Chronic Disease 1-5, Education Complex Pt/Fam, Consent,records obtained, informed consent, Results/Orders obtained and Staff clarify orders Established Patient Charge Established Patient Point Assignment: 95 Established Patient Point Charge: Level 3 (80-115) Surgical Proc/IM SQ injection Minor Surgical Procedure: Yes (BILATERAL KINEE INJECTION) Medication Given Medication Given Medication Given: Yes Documented Dose Given: 1 Route: Infiitration Medication Given Medication Given Medication Given: Yes Documented Dose Given: 1 Route: Infiitration Medication Given Medication Given Medication Given: Yes Documented Dose Given: 4 Route: Infiitration Medication Given Medication Given Medication Given: Yes Documented Dose Given: 4 Route: Infiitration Office Meds methylprednisolone acetate 80 mg/mL suspension for injection Performing Provider: Franklin Kumari MD Performing Location: [facility] Administered by: Franklin Kumari MD on 08/06/25 08:40 Dose Route Admin Location Dispensed Lot Number Expiration Date Package [facility] Game Master 80 mg intra-articular 1 mL [id number] 04/24/27 [address]-1 [id number] [employer] methylprednisolone acetate 80 mg/mL suspension for injection Performing Provider: Franklin Kumari MD Performing Location: [facility] Administered by: Franklin Kumari MD on 08/06/25 08:40 Dose Route Admin Location Dispensed Lot Number Expiration Date Package [facility] NDC Game Master 80 mg intra-articular 1 mL [id number] 04/24/27 [address]-4 [id number] [employer] ropivacaine (PF) 2 mg/mL (0.2 %) injection solution Performing Provider: Franklin Kumari MD Performing Location: [facility] Administered by: Franklin Kumari MD on 08/06/25 08:40 Dose Route Admin Location Dispensed Lot Number Expiration Date Package NDC N[employer] Game [employer] 20 mL Infiltration 20 mL [id number] 12/25/27 57905-870-15 [id number] [employer] ropivacaine (PF) 2 mg/mL (0.2 %) injection solution Performing Provider: Franklin Kumari MD Performing Location: [facility] Administered by: Franklin Kumari MD on 08/06/25 08:40 Dose Route Admin Location Dispensed Lot Number Expiration Date Package NDC NDC Game Master 20 mL Infiltration 20 mL [id number] 12/25/27 65803-933-65 [id number] [facility] Intake Visit Data Collection New Patient or Established: Established Patient [place] [facility] Reason for Visit:: 3 MTH F/U/ BL KNEE INJECTION Seen by Clinical Staff ONLY (RN/MA): No PCP or OBGYN visit in last 3 months: Yes Hx Now: No Do You Feel Safe at Home: Yes Authorities Contacted: N/A Questionairres Past Medical History Past Medical History Have you ever been diagnosed with any of the following: Neurological Problems Cerebrovascular Accident (CVA): Yes Seizures: No Cardiology Problems Myocardial Infarction: Yes Cardiac Arrhythmia: Yes Atrial Fibrillation: Yes Hypercholesterolemia: Yes Congestive Heart Failure: Yes Edema: No Cellulitis: No Hypertension: Yes Varicose Veins: No Respiratory Problems Chronic Obstructive Pulmonary Disease (COPD): No Asthma: No Pulmonary Fibrosis: No Tuberculosis: No Sleep Apnea: No Smoking: No Smoking Exposure: No Stomache/Intestinal Problems Hepatitis: No Gastroesophageal Reflux Disease: Yes Obesity: Yes Genital/Urinary Problems Renal Disease: No Musculoskeletal Problems Arthritis: Yes Gout: Yes Endocrine Problems Diabetes Mellitus Type 1: No Diabetes Mellitus Type 2: Yes (kassi) Hypothyroidism: Yes Blood Problems Sickle Cell Disease: No Other Problems Hospitalization: No Shingles: No Falls: No Blood Transfusions: No Anesthesia Reactions: No Chemotherapy: No Radiation Therapy: No MRSA: No Chicken Pox: No Measles: No Mumps: No Cancer: No Surgical History Pacemaker: Yes Subjective Visit Visit for: follow up visit, knee and injections Immunization / Flu Flu Vaccine in the Last 12 Months: No Flu Vaccine Exclusion Criteria: No Exclusion Criteria History of Present Illness Chief complaint: F/U KNEE INJECTIONS Ar is a pleasant 54-year-old male with bilateral knee pain and bilateral knee arthritis. I been seeing him for quite a while. He does have severe heart issues that are ongoing right now. He has recent ablations and reports that it is currently well-controlled. He would like to get knee injections as he cannot get surgery at this time. He is also getting a cardiac workup at this time. Pain Pain level (0-10): 7 Pain duration: COMES AND GOES Pain location: inside (medial) and anterior Pain quality: dull and aching Pain timing: increases with activity Associated signs & symptoms: none Ambulatory data Ambulatory device: none Treatments Number of previous injections: 2 Improvement with previous injections: Yes Improvement with PT: No Improvement with NSAIDS: no Review of Systems Review of Systems: All systems negative unless otherwise noted in HPI.
[2025-08-06 08:13] VITALS: BP 134/87; PULSE 60; RESP 19; TEMP 36.7; O2SAT 98; BMI 38.2
== END 2025-08-06 08:31 | disposition home or self-care (01) ==
PROVIDERS: PCP Family Medicine; Referring Provider Family Medicine; Supervising Provider Orthopaedic Surgery Adult Reconstructive Orthopaedic Surgery; Visit Provider Orthopaedic Surgery Adult Reconstructive Orthopaedic Surgery
DX: M17.0 Bilateral primary osteoarthritis of knee (principal); E11.9 Type 2 diabetes mellitus without complications; M25.562 Pain in left knee; M25.561 Pain in right knee; I11.0 Hypertensive heart disease with heart failure; I50.9 Heart failure, unspecified; E78.00 Pure hypercholesterolemia, unspecified; I25.2 Old myocardial infarction; Z86.73 Personal history of transient ischemic attack (TIA), and cerebral infarction without residual deficits; I48.91 Unspecified atrial fibrillation; K21.9 Gastro-esophageal reflux disease without esophagitis; E66.9 Obesity, unspecified; Z68.38 Body mass index [BMI] 38.0-38.9, adult; E03.9 Hypothyroidism, unspecified; Z95.0 Presence of cardiac pacemaker
CPT/HCPCS: 20610; 99213; J1010; J2795; G0463

== ENCOUNTER 2025-11-10 07:47 | Outpatient (AMB) | payer OTHER, SELFPAY ==
--- NOTE | 2025-11-10 08:05 | ORTHONT_ITS ---
Vital signs 11/10/25 08:06 Height 1.75 m Height Method Stated Weight 119.465 kg Weight Measurement Method Standing Scale BMI 38.9 BP 123/86 H Blood Pressure Source Automatic Cuff Blood Pressure Location Left Upper Arm Position Sitting Respiration 18 Pulse 74 Pulse Source Monitor Temp 97.5 F Temp Source Temporal Artery Scan Pulse Oximetry (%) 97 Oxygen Delivery Method Room Air Med/Allergies Allergies & Medications Allergies No Known Allergies Allergy (Verified 11/10/25 08:06) Medication Reconciliation allopurinol 300 mg tablet 300 mg PO QDAY 07/17/21 [History Confirmed 11/10/25] rivaroxaban 20 mg tablet (Xarelto) 20 mg PO HS 07/17/21 [History Confirmed 11/10/25] atorvastatin 80 mg tablet 80 mg PO QPM #30 tabs 11/17/22 [Rx Confirmed 11/10/25] tirzepatide 15 mg/0.5 mL subcutaneous pen injector (Mounjaro) 15 mg subcut QWEEK 05/20/24 [History Confirmed 11/10/25] linaclotide 145 mcg capsule (Linzess) 145 mcg PO QDAY 08/10/24 [History Confirmed 11/10/25] dapagliflozin propanediol 10 mg tablet (Farxiga) 10 mg PO DAILY 09/02/24 [History Confirmed 11/10/25] levothyroxine 88 mcg tablet 88 mcg PO QDAY 09/02/24 [History Confirmed 11/10/25] mexiletine 150 mg capsule 150 mg PO BID 09/02/24 [History Confirmed 11/10/25] sotalol 160 mg tablet 160 mg PO BID 09/02/24 [History Confirmed 11/10/25] lisinopril 2.5 mg tablet 2.5 mg PO QDAY #30 tabs 09/03/24 [Rx Confirmed 11/10/25] metoprolol tartrate 50 mg tablet 50 mg PO QDAY 11/14/24 [History Confirmed 11/10/25] nifedipine 60 mg tablet,extended release 24 hr 60 mg PO QDAY 12/19/24 [History Confirmed 11/10/25] loratadine 10 mg tablet 10 mg PO DAILY 12/27/24 [History Confirmed 11/10/25] psyllium husk 3.4 gram oral powder packet (Metamucil Fiber (aspartame)) 3.4 g PO TID #30 ea 12/29/24 [Rx Confirmed 11/10/25] Exam Exam Patient is in no acute distress and is cooperative with the examination today. Breathing is nonlabored. In no respiratory distress. Bilateral extremities were evaluated and demonstrates sensation intact to light touch. Palpable pedal pulses are present. No significant edema is present. Bilateral hips were examined. The patient has no pain with log roll of the hips. Internal rotation to 30 degrees and external rotation to 30 degrees is painless. Negative FADIR. The left knee was examined. The left knee is in varus alignment. Range of motion from 0-115 degrees. Knee is stable to varus and valgus as well as AP translation with <5mm. Patient has a negative McMurrays. There is no pain with patellofemoral compression and no crepitus noted. The knee is tender to palpation medially. The right knee was also examined. The right knee is in varus alignment. Range of motion from 0-120 degrees. Knee is stable to varus and valgus as well as AP darling slation with <5mm. Patient has a negative McMurrays. There is no pain with patellofemoral compression and no crepitus noted. The knee is tender to palpation medially. X-rays from [facility] dated March 2023 reviewed by me today. This demonstrates complete obliteration of medial joint space. These are nonweightbearing. There is varus deformity Assessment and Plan Problem List (1) Unilateral primary osteoarthritis, right knee: Status: Acute Plan: Patient is a 53-year-old male with bilateral knee osteoarthritis worse on the right. We discussed nonoperative and operative options. He has lost 70 pounds and is doing well. He would like a left knee injection today. He has failed conservative treatment for the right and would like to get this replaced Recommend knee cortisone injection as patient would like to proceed with conservative treatment at this time. The risks and benefits of the procedure were reviewed with the patient and patient gave verbal consent to continue with the procedure. Procedure: performed by Dr. Kumari Using sterile technique the left knee was thoroughly prepped with alcohol, and approximately 1 cc of Depo-Medrol 80mg/mL and 4 cc of 0.2% ropivacaine was injected without resistance into the medial tibial femoral joint space. The patient tolerated the procedure. The nature and purpose of the total knee replacement, alternative method(s) of t reatment, the material risks involved, and the possibility of complications were fully explained to the patient. The patient does NOT have any of the following contraindications to TKA: - Active infection of the knee joint, OR - Active systemic bacteremia, OR - Active skin infection or open wound at surgical site, OR - Neuropathic arthritis, OR - Severe, rapidly progressive neurological disease, OR - Severe medical condition that makes risks of surgery outweigh the potential benefit. ?The patient was told the most common risks and complications associated with a total knee replacement include, but are not limited to: blood clots in the leg, stiffness, fatal pulmonary embolism, dislocation of the prosthesis, intraoperative and postoperative fractures of the femur or tibia, infection, failure of the prosthesis or grafting materials, complications from anesthesia, reactions to blood transfusions, postoperative leg length inequality, instability of the knee replacement, nerve damage or injury, vascular injury, delayed wound healing, infection, other injury or even . In addition, there are risks associated with anesthesia given during this operation. Also, the patient was told that after undergoing a total knee replacement there may still be persistent pain or disability. The patient was informed that the success of this operation in part depends upon the mechanical devices which are going to be implanted and that these devices can fail or malfunction, and may need to be repaired or replaced and there are no guarantees as to the longevity of this device or its parts and that it or its parts could fail prematurely. The importance of compliance with physical therapy was also discussed with the patient. The patient was also notified that during the course of surgery, there may be a need to use bone graft from donors, and that any bone graft used will be carefully screened for communicable diseases, including AIDS, hepatitis, Russell-Creutzfeldt, or other diseases, but despite the screening procedures, there is a small chance that they could contract one of these diseases. Finally, the patient was asked to follow completely and fully with all advice and recommended treatments, and that recovery and ultimate outcome are affected by their compliance with recommended treatment. We discussed the risks, benefits and treatment alternatives, and the patient is interested in proceeding with surgery. We will try to set this up as expeditiously as possible. (2) Diabetes: Status: Acute Office Procedures GNS Level of Care Nursing/Assessment Patient Status: Established Patient Nursing Assessment/Reassesment: Medication Reconciliation, Update PMH in EMR and Vital Signs Coordination of Care: Complex Care and Chronic Disease 1-5, Education Complex Pt/Fam, Consent,records obtained, informed consent, Results/Orders obtained and Staff clarify orders Established Patient Charge Established Patient Point Assignment: 95 Established Patient Point Charge: EP Level 3 (80-115) Surgical Proc/IM SQ injection Minor Surgical Procedure: Yes (LEFT KNEE INJECTION) Medication Given Medication Given Medication Given: Yes Documented Dose Given: 1 Route: Infiitration Medication Given Medication Given Medication Given: Yes Documented Dose Given: 4 Route: Infiitration Office Meds methylprednisolone acetate 80 mg/mL suspension for injection Performing Provider: Franklin Kumari MD Performing Location: [facility] Administered by: Franklin Kumari MD on 11/10/25 08:28 Dose Route Admin Location Dispensed Lot Number Expiration Date Pack age [facility] [employer] 80 mg intra-articular 1 mL [id number] 07/25/27 [address]-8 [id number] [employer] ropivacaine (PF) 2 mg/mL (0.2 %) injection solution Performing Provider: Franklin Kumari MD [facility] Administered by: Franklin Kumari MD on 11/10/25 08:28 Dose Route Admin Location Dispensed Lot Number Expiration Date Pack age [facility] [employer] Operator 20 mL Infiltration 20 mL [id number] 04/24/27 5270-8316-90 [id number] CHRISTIAN GOLDSTEIN MA Intake Visit Data Collection New Patient or Established: Established Patient (seen at [facility] within 3 years) Reason for Visit:: 3 MTH F/U/ BL KNEE INJECTION Seen by Clinical Staff ONLY (RN/MA): No PCP or OBGYN visit in last 3 months: Yes Hx Now: No Do You Feel Safe at Home: Yes Authorities Contacted: N/A Questionairres Past Medical History Past Medical History Have you ever been diagnosed with any of the following: Neurological Problems Cerebrovascular Accident (CVA): Yes Seizures: No Cardiology Problems Myocardial Infarction: Yes Cardiac Arrhythmia: Yes Atrial Fibrillation: Yes Hypercholesterolemia: Yes Congestive Heart Failure: Yes Edema: No Cellulitis: No Hypertension: Yes Varicose Veins: No Respiratory Problems Chronic Obstructive Pulmonary Disease (COPD): No Asthma: No Pulmonary Fibrosis: No Tuberculosis: No Sleep Apnea: No Smoking: No Smoking Exposure: No Stomache/Intestinal Problems Hepatitis: No Gastroesophageal Reflux Disease: Yes Obesity: Yes Genital/Urinary Problems Renal Disease: No Musculoskeletal Problems Arthritis: Yes Gout: Yes Endocrine Problems Diabetes Mellitus Type 1: No Diabetes Mellitus Type 2: Yes (kassi) Hypothyroidism: Yes Blood Problems Sickle Cell Disease: No Other Problems Hospitalization: No Shingles: No Falls: No Blood Transfusions: No Anesthesia Reactions: No Chemotherapy: No Radiation Therapy: No MRSA: No Chicken Pox: No Measles: No Mumps: No Cancer: No Surgical History Pacemaker: Yes Subjective Visit Visit for: follow up visit, knee and injections Immunization / Flu Flu Vaccine in the Last 12 Months: No Flu Vaccine Exclusion Criteria: No Exclusion Criteria History of Present Illness Chief complaint: F/U KNEE INJECTIONS Ar is a pleasant 54-year-old male with bilateral knee pain and bilateral knee arthritis. I been seeing him for quite a while. He does have severe heart issues that are ongoing right now. He has recent ablations and reports that it is currently well-controlled. He is seeing his rubbish collector in 1 month and see if we can get approved. He is on Xarelto and we will need to plan for this Pain Pain level (0-10): 7 Pain duration: COMES AND GOES Pain location: inside (medial) and anterior Pain quality: dull and aching Pain timing: increases with activity Associated signs & symptoms: none Ambulatory data Ambulatory device: none Treatments Number of previous injections: 2 Improvement with previous injections: Yes Improvement with PT: No Improvement with NSAIDS: no Review of Systems Review of Systems: All systems negative unless otherwise noted in HPI.
[2025-11-10 08:06] VITALS: BP 123/86; PULSE 74; RESP 18; TEMP 36.4; O2SAT 97; BMI 38.9
== END 2025-11-10 08:23 | disposition home or self-care (01) ==
PROVIDERS: PCP Family Medicine; Referring Provider Family Medicine; Supervising Provider Orthopaedic Surgery Adult Reconstructive Orthopaedic Surgery; Visit Provider Orthopaedic Surgery Adult Reconstructive Orthopaedic Surgery
DX: M17.11 Unilateral primary osteoarthritis, right knee (principal); E11.9 Type 2 diabetes mellitus without complications
CPT/HCPCS: 20610; 99213; J1010; J2795; G0463